=== PATIENT | female | born 1945 | race Caucasian/White ===

== ENCOUNTER 2016-10-13 10:39 | Inpatient (IN) | payer OTHER ==
[~2016-10-13] VITALS: Ht 152.4 cm; Wt 110.0 kg
[~2016-10-13 10:39] MED LIST: ADVAIR 250/501 DISK IH; ALENDRONATE SOD70 MG PO; ALTACE10 MG PO; AMOX TR-K CLV1 EAC4 PO; ATARAX,VISTARIL25 MG PO; ATIVAN1 MG PO; AUGMENTIN875 MG PO; Altace PO; BEANO1 TABLET PO; BENICAR40 MG PO; CALCIUM + D TA1 EACH PO; CALCIUM 500 +1 EAC4 PO; CALCIUM 600 +1 EAC4 PO; CALCIUM 600 +1 EAC9 PO; CARDIZEM CD,CA300 MG PO; CARDIZEM CD240 MG PO; CARDIZEM CD300 MG PO; CATAPRES0.1 MG PO; CEFTIN500 MG PO; CLONIDINE HCL0.1 MG PO; CLONIDINE HCL0.2 MG PO; COMBIVENT200 INHALA IH; CONSTULOSE10 GM/15 M PO; CYANOCOBAL1000 MCG/2 IM; Cardizem CD,Cartia X PO; Catapres PO; Cozaar PO; DAILY VITAMIN1 EAC8 PO; DIFLUCAN150 MG PO; DILTIAZEM 24HR240 MG PO; DUONEB 2.5-0.5 M3 ML IH; ELIQUIS5 MG PO; ENDOCET 10-3251 EACH PO; FEOSOL325 MG PO; FERROUS SULFAT324 M1 PO; FLONASE16 G1 BOTH NARES; FLOVENT DISKUS1 DIS2 IH; FLUTICASONE PRO16 GM BOTH NARES; FOSAMAX70 MG PO; FUROSEMIDE20 MG PO; FUROSEMIDE40 MG PO; GABAPENTIN100 MG; GABAPENTIN100 MG PO; GLUCOPHAGE500 MG PO; HYDROCODON-ACE1 EAC7; HYDROCODON-ACE1 EAC7 PO; HYDROCODON-ACE1 EAC9 PO; HYDROXYZINE PAM25 MG PO; IBUPROFEN800 MG PO; IPRATR-ALBUTEROL3 ML IH; K-DUR20 MEQ PO; KENALOG,ARISTOC80 G1 TP; KETOCONAZOLE60 GM TP; KLOR-CON M2020 MEQ PO; LANTUS 10100 UNITS/ SC; LANTUS 3 M100 UNITS1 SC; LANTUS 3 M100 UNITS1 SQ; LASIX40 MG PO; LEVAQUIN500 MG PO; LEVOTHROID,S0.075 MG PO; LEVOTHYROXINE200 MC1; LEVOTHYROXINE300 MCG PO; LEVOTHYROXINE50 MCG; LIDOCAINE700 MG TD; Levothroid,Synthroid PO; MAG-AL PLUS SUS30 ML PO; METROGEL60 GM TP; MOTRIN800 MG PO; MULTIVITAMIN1 EAC2 PO; NEURONTIN100 MG PO; NEURONTIN400 MG PO; NORCO 5/3251 TABLET PO; NOVOLOG PE100 UNITS/ SC; NYSTATIN-TRIAMC15 GM TP; Neurontin PO; OMEPRAZOLE20 MG PO; OMNICEF300 MG PO; ONE DAILY WOME1 EACH PO; PREDNISONE10 MG PO; PREDNISONE20 MG PO; PREDNISONE5 MG PO; PRILOSEC20 MG PO; PROAIR HFA8.5 GM IH; PROBIOTIC 10 PO; PROBIOTIC1 EAC1 PO; PROBIOTIC1 EAC2 PO; PROVENTIL,2.5 MG/0.5 IH; PROVENTIL,2.5 MG/3 M IH; RAMIPRIL10 MG PO; REQUIP1 MG PO; REQUIP2 MG PO; ROBITUSSIN DM118 ML PO; ROPINIROLE HCL2 MG; ROPINIROLE HCL2 MG PO; Requip PO; SANTYL30 GM TP; SENNA S TABLET1 EACH PO; SENNA-C8.6 MG PO; SENNA-DOCUSATE1 EAC1 PO; SENOKOT S,PE1 TABLET PO; SPIRIVA1 INHALATI IH; SYNTHROID200 MCG PO; SYNTHROID300 MCG PO; SYNTHROID50 MCG PO; Senokot,Sennagen PO; TAZTIA XT300 M1 PO; TETRACYCLINE H250 MG PO; TRILISATE PO; TYLENOL ARTHRI650 MG PO; TYLENOL EXTRA500 MG PO; TYLENOL PM1 CAPLET PO; TYLENOL REGULA325 MG PO; VENTOLIN HFA18 GM IH; VISTARIL25 MG PO; WOMEN'S DAILY1 EAC1 PO; XANAX0.25 MG PO; ZANAFLEX4 MG PO
[2016-10-13 11:02] LABS: POINT-OF-CARE METER ID UU13113747
[2016-10-13 12:03] LABS: HEMATOCRIT 41.6 % (36.0-46.0); MCH 25.4 PG (29.0-34.0); MCHC 31.3 G/DL (30.0-36.0); MEAN PLAT.VOLUME 8.8 uM^3 (9.5-12.4); PLATELET COUNT 349 K/uL (156-360); RBC DIS.WIDTH-CV 18.9 % (11.8-14.6); RBC DIS.WIDTH-SD 55.8 % (39-53)
[2016-10-13 12:17] LABS: MCV 81.4 FL (83-99); RED BLOOD COUNT 5.11 M/uL (3.80-5.20); WHITE BLOOD COUNT 11.3 K/uL (4.1-10.2)
[2016-10-13 12:21] LABS: CHLORIDE 105 mEq/L (99-109); POTASSIUM 5.9 mEq/L (3.7-5.4); SODIUM 138 mEq/L (136-147)
[2016-10-13 12:22] LABS: GLUCOSE 86 mg/dL (70-99)
[2016-10-13 12:24] LABS: ANION GAP 11 MEQ/L (2-14)
[2016-10-13 12:26] LABS: GFR ESTIMATE (CALCULATED) 37 mL/min/
[2016-10-13 12:26] LABS: ADD MIUA? YES; BILIRUBIN NEGATIVE; BLOOD TRACE; COLOR YELLOW ((YELLOW)); GLUCOSE (STRIP) NEGATIVE; KETONES NEGATIVE; LEUKOCYTES TRACE; NITRITE NEGATIVE; PROTEIN (STRIP) NEGATIVE; SPECIFIC GRAVITY 1.022 (1.000-1.030); UROBILINOGEN 0.2 MG/DL (0.2-1.0)
[2016-10-13 12:27] LABS: UREA NITROGEN (BUN) 51 mg/dL (9-23)
[2016-10-13 12:30] LABS: TROP-I INTERPRETATION NEGATIVE; TROPONIN-I < 0.01 ng/mL (0.0-0.30)
[2016-10-13 12:49] LABS: EPITHELIAL CELLS 1+; MUCUS NONE SEEN; RED BLOOD CELLS RARE /HPF (0-5); WHITE BLOOD CELLS RARE /HPF (0-5)
[2016-10-13 12:50] LABS: BACTERIA 1+; CASTS PRESENT /LPF; CRYSTALS NONE SEEN; HYALINE CASTS 25-30 /LPF; UCUL ADDED? NO
[2016-10-13 17:31] LABS: POINT-OF-CARE METER ID UU13113747
[2016-10-13 18:57] VITALS: BP 141/89
[2016-10-13 19:11] VITALS: BP 141/89
[2016-10-13 21:58] LABS: POINT-OF-CARE METER ID UU13113717
[2016-10-14 01:31] VITALS: BP 142/64
[2016-10-14 01:46] LABS: CHLORIDE 108 mEq/L (99-109); POTASSIUM 5.6 mEq/L (3.7-5.4); SODIUM 140 mEq/L (136-147)
[2016-10-14 01:48] LABS: GLUCOSE 170 mg/dL (70-99)
[2016-10-14 01:49] LABS: ANION GAP 9 MEQ/L (2-14)
[2016-10-14 01:51] LABS: GFR ESTIMATE (CALCULATED) 34 mL/min/
[2016-10-14 01:52] LABS: UREA NITROGEN (BUN) 38 mg/dL (9-23)
[2016-10-14 03:42] VITALS: BP 141/63
[2016-10-14 06:25] LABS: HEMATOCRIT 30.4 % (36.0-46.0); MCH 24.6 PG (29.0-34.0); MCHC 29.6 G/DL (30.0-36.0); MCV 83.1 FL (83-99); MEAN PLAT.VOLUME 9.2 uM^3 (9.5-12.4); PLATELET COUNT 399 K/uL (156-360); RBC DIS.WIDTH-CV 18.4 % (11.8-14.6); RBC DIS.WIDTH-SD 56.5 % (39-53)
[2016-10-14 06:33] LABS: ANION GAP 7 MEQ/L (2-14); CHLORIDE 106 MEQ/L (99-109); GFR ESTIMATE (CALCULATED) 37 mL/min/; GLUCOSE 156 mg/dL (70-99); POTASSIUM 5.2 MEQ/L (3.7-5.4); SAMPLE HEMOLYSIS CHECK 0; SAMPLE ICTERIC CHECK 0; SAMPLE LIPEMIA CHECK 0; SODIUM 139 MEQ/L (136-147); UREA NITROGEN (BUN) 34 mg/dL (9-23)
[2016-10-14 06:35] LABS: RED BLOOD COUNT 3.66 M/uL (3.80-5.20); WHITE BLOOD COUNT 17.3 K/uL (4.1-10.2)
[2016-10-14 06:57] LABS: POINT-OF-CARE METER ID UU13113717
[2016-10-14 07:28] VITALS: BP 138/68
[2016-10-14 09:56] LABS: POINT-OF-CARE METER ID UU14149397
[2016-10-14 11:37] LABS: POINT-OF-CARE METER ID UU14149397
[2016-10-14 15:39] VITALS: BP 124/75
[2016-10-14 17:11] LABS: POINT-OF-CARE METER ID UU14149397
[2016-10-14 20:02] VITALS: BP 132/60
[2016-10-14 23:44] VITALS: BP 132/60
[2016-10-15] VITALS (16 sets, daily range): BP systolic 125–162; BP diastolic 58–87
[2016-10-15 05:19] LABS: INTER. NORMALIZED RATIO 1.1; PROTHROMBIN TIME 10.7 (9.2-11.2); PTT 30.3 (25-32)
[2016-10-15 05:23] LABS: CHLORIDE 107 mEq/L (99-109); POTASSIUM 5.3 mEq/L (3.7-5.4); SODIUM 139 mEq/L (136-147)
[2016-10-15 05:24] LABS: GLUCOSE 190 mg/dL (70-99)
[2016-10-15 05:26] LABS: ANION GAP 8 MEQ/L (2-14)
[2016-10-15 05:28] LABS: GFR ESTIMATE (CALCULATED) 47 mL/min/
[2016-10-15 05:29] LABS: UREA NITROGEN (BUN) 30 mg/dL (9-23)
[2016-10-15 05:32] LABS: HEMATOCRIT 28.2 % (36.0-46.0); MCHC 31.2 G/DL (30.0-36.0); MCV 83.2 FL (83-99); MEAN PLAT.VOLUME 9.2 uM^3 (9.5-12.4); PLATELET COUNT 348 K/uL (156-360); RBC DIS.WIDTH-CV 17.7 % (11.8-14.6); RBC DIS.WIDTH-SD 52.2 % (39-53); RED BLOOD COUNT 3.39 M/uL (3.80-5.20); WHITE BLOOD COUNT 15.9 K/uL (4.1-10.2)
[2016-10-15 05:50] LABS: EOSINOPHIL (%) 0 % (0-5); IMMATURE GRANULOCYTE (%) 1.1 % (0.0-0.7); IMMATURE GRANULOCYTE COUNT 1.8 K/uL; LYMPHOCYTE COUNT 0.5 K/uL (1.0-2.8); MONOCYTE (%) 4.4 % (3-12); MONOCYTE COUNT 0.7 K/uL (0-0.8); NEUTROPHIL (%) 91.4 % (45-76); NEUTROPHIL COUNT 14.6 K/uL (1.8-6.4)
[2016-10-15 06:19] LABS: POINT-OF-CARE METER ID UU14149397
[2016-10-15 11:47] LABS: POINT-OF-CARE METER ID UU13113717
[2016-10-15 16:55] LABS: POINT-OF-CARE METER ID UU13113717
[2016-10-16 00:18] VITALS: BP 137/65
[2016-10-16 04:00] VITALS: BP 120/58
[2016-10-16 05:30] LABS: HEMATOCRIT 27.5 % (36.0-46.0); MCH 26.6 PG (29.0-34.0); MCHC 31.6 G/DL (30.0-36.0); MCV 84.1 FL (83-99); MEAN PLAT.VOLUME 9.2 uM^3 (9.5-12.4); PLATELET COUNT 336 K/uL (156-360); RBC DIS.WIDTH-CV 17.2 % (11.8-14.6); RED BLOOD COUNT 3.27 M/uL (3.80-5.20); WHITE BLOOD COUNT 19.5 K/uL (4.1-10.2)
[2016-10-16 06:11] LABS: ANION GAP 7 MEQ/L (2-14); CHLORIDE 104 MEQ/L (99-109); GFR ESTIMATE (CALCULATED) 40 mL/min/; GLUCOSE 159 mg/dL (70-99); POTASSIUM 5.3 MEQ/L (3.7-5.4); SAMPLE HEMOLYSIS CHECK 0; SAMPLE ICTERIC CHECK 0; SAMPLE LIPEMIA CHECK 0; SODIUM 141 MEQ/L (136-147); UREA NITROGEN (BUN) 31 mg/dL (9-23)
[2016-10-16 06:55] LABS: POINT-OF-CARE METER ID UU13113717
[2016-10-16 08:21] VITALS: BP 145/63
[2016-10-16 11:52] LABS: POINT-OF-CARE METER ID UU13113717
[2016-10-16 16:54] LABS: POINT-OF-CARE METER ID UU13113717
[2016-10-16 17:10] VITALS: BP 177/85
[2016-10-16 19:40] VITALS: BP 130/80
[2016-10-16 23:25] VITALS: BP 131/64
[2016-10-17 03:00] VITALS: BP 110/65
[2016-10-17 05:39] LABS: HEMATOCRIT 27.5 % (36.0-46.0); MCH 26.7 PG (29.0-34.0); MCHC 31.3 G/DL (30.0-36.0); MCV 85.4 FL (83-99); MEAN PLAT.VOLUME 9.2 uM^3 (9.5-12.4); PLATELET COUNT 353 K/uL (156-360); RBC DIS.WIDTH-CV 17.4 % (11.8-14.6); RBC DIS.WIDTH-SD 54.8 % (39-53); RED BLOOD COUNT 3.22 M/uL (3.80-5.20); WHITE BLOOD COUNT 14.5 K/uL (4.1-10.2)
[2016-10-17 06:04] LABS: ANION GAP 9 MEQ/L (2-14); CHLORIDE 101 MEQ/L (99-109); GFR ESTIMATE (CALCULATED) 43 mL/min/; GLUCOSE 159 mg/dL (70-99); POTASSIUM 4.8 MEQ/L (3.7-5.4); SAMPLE HEMOLYSIS CHECK 0; SAMPLE ICTERIC CHECK 0; SAMPLE LIPEMIA CHECK 0; SODIUM 138 MEQ/L (136-147); UREA NITROGEN (BUN) 33 mg/dL (9-23)
[2016-10-17 07:31] LABS: POINT-OF-CARE METER ID UU13113717
[2016-10-17 07:59] VITALS: BP 148/66
[2016-10-17 11:36] LABS: POINT-OF-CARE METER ID UU14149397
[2016-10-17 16:10] VITALS: BP 142/64
[2016-10-17 16:36] LABS: POINT-OF-CARE METER ID UU14149397
[2016-10-17 20:23] VITALS: BP 120/64
[2016-10-17 22:22] LABS: POINT-OF-CARE METER ID UU13113717
[2016-10-17 23:53] VITALS: BP 120/60
[2016-10-18] VITALS (12 sets, daily range): BP systolic 120–176; BP diastolic 58–77
[2016-10-18 06:01] LABS: ANION GAP 6 MEQ/L (2-14); CHLORIDE 104 MEQ/L (99-109); GFR ESTIMATE (CALCULATED) 37 mL/min/; GLUCOSE 137 mg/dL (70-99); SAMPLE HEMOLYSIS CHECK 0; SAMPLE ICTERIC CHECK 0; SAMPLE LIPEMIA CHECK 0; SODIUM 140 MEQ/L (136-147); UREA NITROGEN (BUN) 33 mg/dL (9-23)
[2016-10-18 07:04] LABS: HEMATOCRIT 21.5 % (36.0-46.0); MCH 26.5 PG (29.0-34.0); MCHC 30.7 G/DL (30.0-36.0); MCV 86.3 FL (83-99); PLATELET COUNT 310 K/uL (156-360); RBC DIS.WIDTH-CV 17.3 % (11.8-14.6); RBC DIS.WIDTH-SD 52.5 % (39-53); WHITE BLOOD COUNT 14.1 K/uL (4.1-10.2)
[2016-10-18 07:05] LABS: RED BLOOD COUNT 2.49 M/uL (3.80-5.20)
[2016-10-18 14:26] LABS: INTERNAL CONTROL VALID? YES
[2016-10-18 20:32] LABS: HEMATOCRIT 25.7 % (36.0-46.0); MCV 85.7 FL (83-99)
[2016-10-19 04:01] VITALS: BP 138/65
[2016-10-19 06:12] LABS: HEMATOCRIT 23.7 % (36.0-46.0); MCH 27.7 PG (29.0-34.0); MCHC 32.1 G/DL (30.0-36.0); MCV 86.5 FL (83-99); MEAN PLAT.VOLUME 9.4 uM^3 (9.5-12.4); PLATELET COUNT 243 K/uL (156-360); RBC DIS.WIDTH-CV 17.4 % (11.8-14.6); RBC DIS.WIDTH-SD 54.6 % (39-53); RED BLOOD COUNT 2.74 M/uL (3.80-5.20); WHITE BLOOD COUNT 13.6 K/uL (4.1-10.2)
[2016-10-19 06:39] LABS: ANION GAP 5 MEQ/L (2-14); CHLORIDE 101 MEQ/L (99-109); GFR ESTIMATE (CALCULATED) 52 mL/min/; GLUCOSE 147 mg/dL (70-99); POTASSIUM 5.3 MEQ/L (3.7-5.4); SAMPLE HEMOLYSIS CHECK 0; SAMPLE ICTERIC CHECK 0; SAMPLE LIPEMIA CHECK 0; SODIUM 141 MEQ/L (136-147); UREA NITROGEN (BUN) 36 mg/dL (9-23)
[2016-10-19 09:12] VITALS: BP 154/52
[2016-10-19 12:10] VITALS: BP 152/78
[2016-10-19 16:44] VITALS: BP 173/61
[2016-10-19 20:00] VITALS: BP 187/74
[2016-10-19 20:15] VITALS: BP 150/70
[2016-10-20] VITALS (9 sets, daily range): BP systolic 148–189; BP diastolic 63–90
[2016-10-20 04:34] LABS: HEMATOCRIT 25.7 % (36.0-46.0); MCH 26.8 PG (29.0-34.0); MCHC 30.4 G/DL (30.0-36.0); MCV 88.3 FL (83-99); MEAN PLAT.VOLUME 9.1 uM^3 (9.5-12.4); PLATELET COUNT 314 K/uL (156-360); RBC DIS.WIDTH-CV 17.1 % (11.8-14.6); RED BLOOD COUNT 2.91 M/uL (3.80-5.20)
[2016-10-20 04:41] LABS: CHLORIDE 99 mEq/L (99-109); POTASSIUM 5.2 mEq/L (3.7-5.4); SODIUM 140 mEq/L (136-147)
[2016-10-20 04:42] LABS: GLUCOSE 127 mg/dL (70-99)
[2016-10-20 04:44] LABS: ANION GAP 6 MEQ/L (2-14)
[2016-10-20 04:46] LABS: GFR ESTIMATE (CALCULATED) 47 mL/min/
[2016-10-20 04:47] LABS: UREA NITROGEN (BUN) 37 mg/dL (9-23)
[2016-10-20] MEDS ORDERED: SENNA S TABLET1 EACH PO ×2 (15:10→15:11)
[2016-10-20] MEDS ORDERED: PROBIOTIC1 EAC1 PO (15:11)
[2016-10-20] MEDS ORDERED: WOMEN'S DAILY1 EAC2 PO (15:12)
[2016-10-20] MEDS ORDERED: CALCIUM 500 +1 EAC5 PO (15:12)
[2016-10-20] MEDS ORDERED: HYDROXYZINE HCL25 MG PO ×2 (15:13)
[2016-10-20] MEDS ORDERED: LEVO-T300 MCG PO ×2 (15:16)
[2016-10-20] MEDS ORDERED: FLONASE16 G1 BOTH NARES (15:17)
[2016-10-20] MEDS ORDERED: ROPINIROLE HCL2 MG PO (15:18)
[2016-10-20] MEDS ORDERED: ALPRAZOLAM0.25 M2 PO (15:18)
[2016-10-20] MEDS ORDERED: GABAPENTIN400 MG PO (15:19)
[2016-10-20] MEDS ORDERED: SPIRIVA1 INHALATI AEROSOL (15:21)
[2016-10-20] MEDS ORDERED: ADVAIR 250/501 DISK PO (15:23)
[2016-10-20] MEDS ORDERED: FERROUS SULFAT325 MG PO ×2 (15:24)
[2016-10-20] MEDS ORDERED: PROAIR HFA8.5 GM PO (15:24)
[2016-10-20] MEDS ORDERED: POTASSIUM CHLO20 ME2 PO (15:25)
[2016-10-20] MEDS ORDERED: CARDIZEM CD,CA240 MG PO (15:26)
[2016-10-20] MEDS ORDERED: RAMIPRIL10 MG PO (15:26)
[2016-10-20] MEDS ORDERED: ELIQUIS5 MG PO (15:27)
[2016-10-20] MEDS ORDERED: LANTUS 3 M100 UNITS1 SC (15:27)
[2016-10-20] MEDS ORDERED: CLONIDINE HCL0.1 MG PO (15:27)
[2016-10-20] MEDS ORDERED: FUROSEMIDE40 MG PO (15:28)
[2016-10-20] MEDS ORDERED: PROVENTIL,2.5 MG/3 M AEROSOL (15:28)
[2016-10-20 21:29] LABS: POINT-OF-CARE METER ID UU14149397
[2016-10-21] VITALS (7 sets, daily range): BP systolic 134–167; BP diastolic 63–89
[2016-10-21 06:43] LABS: POINT-OF-CARE METER ID UU13113717
[2016-10-21 06:52] LABS: HEMATOCRIT 30.6 % (36.0-46.0); MCV 88.7 FL (83-99)
[2016-10-21 11:54] LABS: POINT-OF-CARE METER ID UU14149397
[2016-10-21] MEDS ORDERED: DOXYCYCLINE HY100 M3 PO (14:22)
[2016-10-21] MEDS ORDERED: FUROSEMIDE40 MG PO (14:24)
[2016-10-21] MEDS ORDERED: PROTONIX40 MG PO (14:26)
[2016-10-21] MEDS ORDERED: PREDNISONE20 MG PO (14:28)
[2016-10-21 16:43] LABS: POINT-OF-CARE METER ID UU14149397
[2016-10-21 21:02] LABS: POINT-OF-CARE METER ID UU14149397
== END 2016-10-21 21:30 | disposition short-term general hospital (02) | DRG 166 ==
LOC: EME 10:39 → EDOF 14:44 → 3EAST 14:44
PROVIDERS: Emergency Medicine; Hospitalist; Internal Medicine; Orthopaedic Surgery; Orthopaedic Surgery Hand Surgery; Physician Assistant; Physician Assistant Medical
PROC: 0HD7XZZ Extraction of Abdomen Skin, External Approach (ICD-10-PCS; principal; 2016-10-14)
PROC: 0HBNXZZ Excision of Left Foot Skin, External Approach (ICD-10-PCS; principal; 2016-10-14)
PROC: 0SSB04Z Reposition Left Hip Joint with Internal Fixation Device, Open Approach (ICD-10-PCS; 2016-10-15)
PROC: 30230N1 Transfusion of Nonautologous Red Blood Cells into Peripheral Vein, Open Approach (ICD-10-PCS; 2016-10-18)
PROC: 0HCNXZZ Extirpation of Matter from Left Foot Skin, External Approach (ICD-10-PCS; 2016-10-18)
PROC: 0HCMXZZ Extirpation of Matter from Right Foot Skin, External Approach (ICD-10-PCS; 2016-10-18)
PROC: 0HCNXZZ Extirpation of Matter from Left Foot Skin, External Approach (ICD-10-PCS; 2016-10-21)
DX: J44.0 Chronic obstructive pulmonary disease with (acute) lower respiratory infection (principal); S72.142A Displaced intertrochanteric fracture of left femur, initial encounter for closed fracture; J18.9 Pneumonia, unspecified organism; J44.1 Chronic obstructive pulmonary disease with (acute) exacerbation; J96.21 Acute and chronic respiratory failure with hypoxia; N17.9 Acute kidney failure, unspecified; T84.125A Displacement of internal fixation device of left femur, initial encounter; Y83.1 Surgical operation with implant of artificial internal device as the cause of abnormal reaction of the patient, or of later complication, without mention of misadventure at the time of the procedure; Y92.230 Patient room in hospital as the place of occurrence of the external cause; N18.3 Chronic kidney disease, stage 3 (moderate); L89.613 Pressure ulcer of right heel, stage 3; E87.5 Hyperkalemia; I50.32 Chronic diastolic (congestive) heart failure; E03.8 Other specified hypothyroidism; E66.01 Morbid (severe) obesity due to excess calories; W18.39XA Other fall on same level, initial encounter; Y92.009 Unspecified place in unspecified non-institutional (private) residence as the place of occurrence of the external cause; E86.0 Dehydration; Z96.651 Presence of right artificial knee joint; G47.33 Obstructive sleep apnea (adult) (pediatric); Z87.891 Personal history of nicotine dependence; Z99.81 Dependence on supplemental oxygen; R33.0 Drug induced retention of urine; T40.2X5A Adverse effect of other opioids, initial encounter; J98.11 Atelectasis; L03.116 Cellulitis of left lower limb; D50.9 Iron deficiency anemia, unspecified; F41.9 Anxiety disorder, unspecified; I13.0 Hypertensive heart and chronic kidney disease with heart failure and stage 1 through stage 4 chronic kidney disease, or unspecified chronic kidney disease; E11.40 Type 2 diabetes mellitus with diabetic neuropathy, unspecified; E11.22 Type 2 diabetes mellitus with diabetic chronic kidney disease; M14.60 Charcot's joint, unspecified site; E11.621 Type 2 diabetes mellitus with foot ulcer; L97.422 Non-pressure chronic ulcer of left heel and midfoot with fat layer exposed; L89.220 Pressure ulcer of left hip, unstageable; L89.213 Pressure ulcer of right hip, stage 3; L89.310 Pressure ulcer of right buttock, unstageable; L89.150 Pressure ulcer of sacral region, unstageable; L30.4 Erythema intertrigo; I27.2 Other secondary pulmonary hypertension; I08.3 Combined rheumatic disorders of mitral, aortic and tricuspid valves; Z68.42 Body mass index [BMI] 45.0-49.9, adult
CPT/HCPCS: 71010; 73502; 73560; 74000; 76000; 76937; 80048; 80048 91; 81003; 82272; 82306; 82948; 84484; 85014; 85018; 85025; 85027; 85610; 85730; 86850; 86900; 86901; 86920; 87040; 87070; 87075; 87076; 87077; 87147; 87186; 87205; 93005; 93971; 94010; 94640; 94640 76; 94760; 94799; 97530 GP; 99202; 99281; 99285; C1713; C1894; C9113; J0690; J0696; J1100; J1170; J1650; J1815; J1940; J2270; J2405; J2920; J3010; J7030; J7042; J7050; J7120; J7512; P9016; Q0177

== ENCOUNTER 2016-12-31 12:49 | Inpatient (IN) | payer OTHER ==
[2016-12-31] VITALS (8 sets, daily range): BP systolic 90–131; BP diastolic 59–87
[~2016-12-31] VITALS: Ht 152.4 cm; Wt 88.5 kg
[~2016-12-31 12:49] MED LIST changes: +ADVAIR 250/501 DISK PO; +ALPRAZOLAM0.25 M2 PO; +CALCIUM 500 +1 EAC5 PO; +CARDIZEM CD,CA240 MG PO; +DOXYCYCLINE HY100 M3 PO; +FERROUS SULFAT325 MG PO; +GABAPENTIN400 MG PO; +HYDROXYZINE HCL25 MG PO; +LEVO-T300 MCG PO; +POTASSIUM CHLO20 ME2 PO; +PROAIR HFA8.5 GM PO; +PROTONIX40 MG PO; +PROVENTIL,2.5 MG/3 M AEROSOL; +SPIRIVA1 INHALATI AEROSOL; +WOMEN'S DAILY1 EAC2 PO
[2016-12-31 13:20] LABS: INTER. NORMALIZED RATIO 1.2; PROTHROMBIN TIME 12.1 (9.2-11.2)
[2016-12-31 13:23] LABS: CHLORIDE 103 mEq/L (99-109); POTASSIUM 4.1 mEq/L (3.7-5.4); SODIUM 139 mEq/L (136-147)
[2016-12-31 13:25] LABS: GLUCOSE 104 mg/dL (70-99); HEMATOCRIT 22.3 % (36.0-46.0); MCH 27.5 PG (29.0-34.0); MCHC 28.3 G/DL (30.0-36.0); MCV 97.4 FL (83-99); MEAN PLAT.VOLUME 8.6 uM^3 (9.5-12.4); NRBC (%) 0.4 /100 WBC (0-0); PLATELET COUNT 704 K/uL (156-360); RBC DIS.WIDTH-CV 22.3 % (11.8-14.6); RBC DIS.WIDTH-SD 78.3 % (39-53); RED BLOOD COUNT 2.29 M/uL (3.80-5.20); WHITE BLOOD COUNT 13.5 K/uL (4.1-10.2)
[2016-12-31 13:27] LABS: ANION GAP 6 MEQ/L (2-14)
[2016-12-31 13:29] LABS: GFR ESTIMATE (CALCULATED) > 59 mL/min/
[2016-12-31 13:30] LABS: UREA NITROGEN (BUN) 9 mg/dL (9-23)
[2016-12-31] MEDS ORDERED: BREO ELLIPTA I1 EACH IH (14:08)
[2016-12-31] MEDS ORDERED: CARDIZEM CD,CA120 MG PO (14:10)
[2016-12-31] MEDS ORDERED: DIAZEPAM5 MG PO (14:11)
[2016-12-31] MEDS ORDERED: KLOR-CON 1010 ME1 PO (14:12)
[2016-12-31 14:14] LABS: ABSOLUTE RETICULOCYTE CT. 0.2 M/uL (0.02-0.08); IMM.RETIC FRACTION 31.4 % (3-19); RETIC HGB EQUIVALENT 29.8 (28-36); RETICULOCYTE COUNT 10.8 % (0.5-1.8)
[2016-12-31] MEDS ORDERED: LEVO-T200 MCG PO (14:18)
[2016-12-31] MEDS ORDERED: MIRALAX17 GM PO (14:19)
[2016-12-31] MEDS ORDERED: OXYCONTIN10 MG PO (14:21)
[2016-12-31] MEDS ORDERED: PROTONIX40 MG PO (14:21)
[2016-12-31] MEDS ORDERED: ASCORBIC ACID250 MG PO (14:24)
[2016-12-31] MEDS ORDERED: ELIQUIS5 MG PO (14:25)
[2016-12-31] MEDS ORDERED: REQUIP0.25 MG PO (14:33)
[2016-12-31] MEDS ORDERED: SENNA8.6 MG PO (14:36)
[2016-12-31] MEDS ORDERED: SENNA-S TABLET1 EACH PO (14:36)
[2016-12-31] MEDS ORDERED: NEURONTIN100 MG PO (14:38)
[2016-12-31] MEDS ORDERED: MILK OF MAGN PO (14:39)
[2016-12-31] MEDS ORDERED: FLEET ENEMA-AD118 ML PR (14:40)
[2016-12-31] MEDS ORDERED: PAIN & FEVER325 MG PO (14:42)
[2016-12-31] MEDS ORDERED: GLUCOSE GEL15 GM PO (14:43)
[2016-12-31] MEDS ORDERED: DUONEB 2.5-0.5 M3 ML AEROSOL (14:43)
[2016-12-31] MEDS ORDERED: OXAYDO5 MG PO (14:45)
[2016-12-31 21:19] LABS: POINT-OF-CARE METER ID UU14174225
[2017-01-01] VITALS (7 sets, daily range): BP systolic 122–175; BP diastolic 59–85
[2017-01-01 02:01] LABS: MCH 28.5 PG (29.0-34.0); MCHC 29.7 G/DL (30.0-36.0); MEAN PLAT.VOLUME 8.7 uM^3 (9.5-12.4); NRBC (%) 0.3 /100 WBC (0-0); PLATELET COUNT 587 K/uL (156-360); RBC DIS.WIDTH-CV 19.6 % (11.8-14.6); RBC DIS.WIDTH-SD 66.6 % (39-53); RED BLOOD COUNT 3.02 M/uL (3.80-5.20); WHITE BLOOD COUNT 13.8 K/uL (4.1-10.2)
[2017-01-01 07:36] LABS: HEMATOCRIT 28.1 % (36.0-46.0); MCH 28.4 PG (29.0-34.0); MCHC 29.2 G/DL (30.0-36.0); MCV 97.2 FL (83-99); MEAN PLAT.VOLUME 8.4 uM^3 (9.5-12.4); NRBC (%) 0.3 /100 WBC (0-0); PLATELET COUNT 519 K/uL (156-360); RBC DIS.WIDTH-SD 70.4 % (39-53); RED BLOOD COUNT 2.89 M/uL (3.80-5.20)
[2017-01-01 07:55] LABS: POINT-OF-CARE METER ID UU14174225
[2017-01-01 07:57] LABS: ALKALINE PHOSPHATASE 175 IU/L (3-129); ANION GAP 5 MEQ/L (2-14); CHLORIDE 102 MEQ/L (99-109); GFR ESTIMATE (CALCULATED) > 59 mL/min/; GLUCOSE 87 mg/dL (70-99); POTASSIUM 4.1 MEQ/L (3.7-5.4); SAMPLE HEMOLYSIS CHECK 0; SAMPLE ICTERIC CHECK 0; SAMPLE LIPEMIA CHECK 0; SODIUM 139 MEQ/L (136-147); TOTAL BILIRUBIN 0.6 MG/DL (0.0-1.0); UREA NITROGEN (BUN) 9 mg/dL (9-23)
[2017-01-01 10:47] LABS: HEMATOCRIT 30.3 % (36.0-46.0); MCH 28.4 PG (29.0-34.0); MCHC 29.4 G/DL (30.0-36.0); MCV 96.8 FL (83-99); MEAN PLAT.VOLUME 8.7 uM^3 (9.5-12.4); NRBC (%) 0.2 /100 WBC (0-0); PLATELET COUNT 588 K/uL (156-360); RBC DIS.WIDTH-SD 70.2 % (39-53); RED BLOOD COUNT 3.13 M/uL (3.80-5.20); WHITE BLOOD COUNT 12.6 K/uL (4.1-10.2)
[2017-01-01 16:46] LABS: MCH 28.1 PG (29.0-34.0); MCV 96.8 FL (83-99); MEAN PLAT.VOLUME 8.5 uM^3 (9.5-12.4); NRBC (%) 0.2 /100 WBC (0-0); PLATELET COUNT 567 K/uL (156-360); RBC DIS.WIDTH-SD 69.6 % (39-53)
[2017-01-01 19:02] LABS: WHITE BLOOD COUNT 16.9 K/uL (4.1-10.2)
[2017-01-01 21:52] LABS: HEMATOCRIT 30.7 % (36.0-46.0); MCH 28.5 PG (29.0-34.0); MCHC 29.6 G/DL (30.0-36.0); MCV 96.2 FL (83-99); MEAN PLAT.VOLUME 8.7 uM^3 (9.5-12.4); NRBC (%) 0.2 /100 WBC (0-0); PLATELET COUNT 584 K/uL (156-360); RBC DIS.WIDTH-CV 20.1 % (11.8-14.6); RED BLOOD COUNT 3.19 M/uL (3.80-5.20); WHITE BLOOD COUNT 19.2 K/uL (4.1-10.2)
[2017-01-02 04:00] VITALS: BP 137/67
[2017-01-02 07:17] LABS: EOSINOPHIL (%) 2.3 % (0-5); EOSINOPHIL COUNT 0.4 K/uL (0-0.3); HEMATOCRIT 27.8 % (36.0-46.0); IMMATURE GRANULOCYTE (%) 0.7 % (0.0-0.7); IMMATURE GRANULOCYTE COUNT 0.1 K/uL; INSTRUMENT ABS NEUTROPHIL CT 12.6 K/uL; LYMPHOCYTE COUNT 0.9 K/uL (1.0-2.8); MCH 28.1 PG (29.0-34.0); MCHC 28.8 G/DL (30.0-36.0); MCV 97.5 FL (83-99); MEAN PLAT.VOLUME 8.7 uM^3 (9.5-12.4); MONOCYTE (%) 7.9 % (3-12); MONOCYTE COUNT 1.2 K/uL (0-0.8); NEUTROPHIL (%) 83.1 % (45-76); NEUTROPHIL COUNT 12.6 K/uL (1.8-6.4); NRBC (%) 0.1 /100 WBC (0-0); PLATELET COUNT 518 K/uL (156-360); RBC DIS.WIDTH-SD 70.1 % (39-53); RED BLOOD COUNT 2.85 M/uL (3.80-5.20); WHITE BLOOD COUNT 15.2 K/uL (4.1-10.2)
[2017-01-02 07:38] LABS: ANION GAP 4 MEQ/L (2-14); CHLORIDE 103 MEQ/L (99-109); GFR ESTIMATE (CALCULATED) > 59 mL/min/; GLUCOSE 77 mg/dL (70-99); SAMPLE HEMOLYSIS CHECK 0; SAMPLE ICTERIC CHECK 0; SAMPLE LIPEMIA CHECK 0; SODIUM 140 MEQ/L (136-147); UREA NITROGEN (BUN) 9 mg/dL (9-23)
[2017-01-02 07:40] VITALS: BP 133/60
[2017-01-02 08:17] LABS: POINT-OF-CARE METER ID UU14188625
[2017-01-02 11:41] VITALS: BP 122/60
[2017-01-02 12:23] LABS: HEMATOCRIT 26.7 % (36.0-46.0); MCH 28.7 PG (29.0-34.0); MCHC 29.6 G/DL (30.0-36.0); MCV 97.1 FL (83-99); MEAN PLAT.VOLUME 8.4 uM^3 (9.5-12.4); PLATELET COUNT 489 K/uL (156-360); RBC DIS.WIDTH-CV 19.9 % (11.8-14.6); RBC DIS.WIDTH-SD 69.9 % (39-53); RED BLOOD COUNT 2.75 M/uL (3.80-5.20); WHITE BLOOD COUNT 14.8 K/uL (4.1-10.2)
[2017-01-02 15:01] VITALS: BP 123/59
[2017-01-02 17:34] LABS: POINT-OF-CARE METER ID UU14174225
[2017-01-02 19:09] LABS: HEMATOCRIT 26.5 % (36.0-46.0); MCH 28.7 PG (29.0-34.0); MCHC 29.4 G/DL (30.0-36.0); MCV 97.4 FL (83-99); MEAN PLAT.VOLUME 8.7 uM^3 (9.5-12.4); PLATELET COUNT 466 K/uL (156-360); RBC DIS.WIDTH-SD 72.5 % (39-53); RED BLOOD COUNT 2.72 M/uL (3.80-5.20); WHITE BLOOD COUNT 13.8 K/uL (4.1-10.2)
[2017-01-02 20:03] VITALS: BP 133/65
[2017-01-02 21:37] LABS: POINT-OF-CARE METER ID UU14174225
[2017-01-02 23:18] VITALS: BP 126/63
[2017-01-03 02:14] LABS: HEMATOCRIT 29.2 % (36.0-46.0); MCH 28.4 PG (29.0-34.0); MCHC 29.8 G/DL (30.0-36.0); MCV 95.4 FL (83-99); MEAN PLAT.VOLUME 8.5 uM^3 (9.5-12.4); PLATELET COUNT 544 K/uL (156-360); RBC DIS.WIDTH-CV 19.9 % (11.8-14.6); RBC DIS.WIDTH-SD 70.1 % (39-53); RED BLOOD COUNT 3.06 M/uL (3.80-5.20); WHITE BLOOD COUNT 14.1 K/uL (4.1-10.2)
[2017-01-03 03:20] VITALS: BP 122/69
[2017-01-03 07:43] VITALS: BP 140/74
[2017-01-03 08:17] LABS: HEMATOCRIT 31.4 % (36.0-46.0); MCH 28.6 PG (29.0-34.0); MCHC 29.6 G/DL (30.0-36.0); MCV 96.6 FL (83-99); MEAN PLAT.VOLUME 9.1 uM^3 (9.5-12.4); PLATELET COUNT 532 K/uL (156-360); RBC DIS.WIDTH-CV 19.9 % (11.8-14.6); RBC DIS.WIDTH-SD 70.2 % (39-53); RED BLOOD COUNT 3.25 M/uL (3.80-5.20); WHITE BLOOD COUNT 14.7 K/uL (4.1-10.2)
[2017-01-03 09:41] LABS: ANION GAP 3 MEQ/L (2-14); CHLORIDE 102 MEQ/L (99-109); GFR ESTIMATE (CALCULATED) > 59 mL/min/; GLUCOSE 86 mg/dL (70-99); POTASSIUM 4.2 MEQ/L (3.7-5.4); SAMPLE HEMOLYSIS CHECK 0; SAMPLE ICTERIC CHECK 0; SAMPLE LIPEMIA CHECK 0; SODIUM 136 MEQ/L (136-147); UREA NITROGEN (BUN) 10 mg/dL (9-23)
[2017-01-03 11:28] VITALS: BP 143/65
[2017-01-03 11:57] LABS: POINT-OF-CARE METER ID UU14188625
[2017-01-03 15:26] VITALS: BP 114/62
[2017-01-03 18:58] LABS: EOSINOPHIL (%) 3.5 % (0-5); EOSINOPHIL COUNT 0.5 K/uL (0-0.3); IMMATURE GRANULOCYTE (%) 0.7 % (0.0-0.7); IMMATURE GRANULOCYTE COUNT 0.1 K/uL; MONOCYTE (%) 7.7 % (3-12); MONOCYTE COUNT 1.1 K/uL (0-0.8); NEUTROPHIL (%) 81.3 % (45-76)
[2017-01-03 19:48] VITALS: BP 152/74
[2017-01-03 21:48] LABS: POINT-OF-CARE METER ID UU14174225
[2017-01-03 23:48] VITALS: BP 133/59
[2017-01-04] VITALS (7 sets, daily range): BP systolic 122–138; BP diastolic 57–86
[2017-01-04 07:07] LABS: EOSINOPHIL (%) 4.6 % (0-5); EOSINOPHIL COUNT 0.5 K/uL (0-0.3); IMMATURE GRANULOCYTE (%) 0.9 % (0.0-0.7); IMMATURE GRANULOCYTE COUNT 0.1 K/uL; LYMPHOCYTE COUNT 0.9 K/uL (1.0-2.8); MCH 28.1 PG (29.0-34.0); MCHC 28.7 G/DL (30.0-36.0); MCV 97.8 FL (83-99); MEAN PLAT.VOLUME 8.8 uM^3 (9.5-12.4); MONOCYTE (%) 8.8 % (3-12); NEUTROPHIL (%) 77.3 % (45-76); PLATELET COUNT 542 K/uL (156-360); RBC DIS.WIDTH-CV 19.5 % (11.8-14.6); RED BLOOD COUNT 3.17 M/uL (3.80-5.20); WHITE BLOOD COUNT 11.6 K/uL (4.1-10.2)
[2017-01-04 07:33] LABS: ANION GAP 6 MEQ/L (2-14); CHLORIDE 103 MEQ/L (99-109); GFR ESTIMATE (CALCULATED) > 59 mL/min/; GLUCOSE 64 mg/dL (70-99); POTASSIUM 4.2 MEQ/L (3.7-5.4); SAMPLE HEMOLYSIS CHECK 0; SAMPLE ICTERIC CHECK 0; SAMPLE LIPEMIA CHECK 0; SODIUM 142 MEQ/L (136-147); UREA NITROGEN (BUN) 10 mg/dL (9-23)
[2017-01-04 07:51] LABS: POINT-OF-CARE METER ID UU14188625
[2017-01-04 08:18] LABS: POINT-OF-CARE METER ID UU14188625
[2017-01-04 09:03] LABS: POINT-OF-CARE METER ID UU14188625
[2017-01-04 11:34] LABS: POINT-OF-CARE METER ID UU14188625
[2017-01-04 16:52] LABS: POINT-OF-CARE METER ID UU14174225
[2017-01-04 21:05] LABS: POINT-OF-CARE METER ID UU14188625
[2017-01-05 03:48] VITALS: BP 147/67
[2017-01-05 06:52] LABS: ANION GAP 6 MEQ/L (2-14); C-REACTIVE PROTEIN 99.5 MG/L (0-10); CHLORIDE 104 MEQ/L (99-109); GFR ESTIMATE (CALCULATED) > 59 mL/min/; GLUCOSE 74 mg/dL (70-99); SAMPLE HEMOLYSIS CHECK 1; SAMPLE ICTERIC CHECK 0; SAMPLE LIPEMIA CHECK 0; SODIUM 141 MEQ/L (136-147); UREA NITROGEN (BUN) 10 mg/dL (9-23)
[2017-01-05 06:54] LABS: POTASSIUM 4.7 MEQ/L (3.7-5.4)
[2017-01-05 07:51] VITALS: BP 121/63
[2017-01-05 08:20] LABS: EOSINOPHIL (%) 5.5 % (0-5); EOSINOPHIL COUNT 0.6 K/uL (0-0.3); HEMATOCRIT 31.7 % (36.0-46.0); IMMATURE GRANULOCYTE (%) 0.7 % (0.0-0.7); IMMATURE GRANULOCYTE COUNT 0.1 K/uL; INSTRUMENT ABS NEUTROPHIL CT 8.1 K/uL; MCH 27.9 PG (29.0-34.0); MCHC 28.7 G/DL (30.0-36.0); MCV 97.2 FL (83-99); MEAN PLAT.VOLUME 8.9 uM^3 (9.5-12.4); MONOCYTE (%) 8.7 % (3-12); MONOCYTE COUNT 0.9 K/uL (0-0.8); NEUTROPHIL (%) 75.8 % (45-76); NEUTROPHIL COUNT 8.1 K/uL (1.8-6.4); PLATELET COUNT 512 K/uL (156-360); RBC DIS.WIDTH-CV 19.1 % (11.8-14.6); RBC DIS.WIDTH-SD 68.6 % (39-53); RED BLOOD COUNT 3.26 M/uL (3.80-5.20); WHITE BLOOD COUNT 10.7 K/uL (4.1-10.2)
[2017-01-05 09:04] LABS: ERTH.SED.RATE 46 MM/HR (0-30)
[2017-01-05 12:31] VITALS: BP 146/78
[2017-01-05 16:07] VITALS: BP 143/66
[2017-01-05 17:12] LABS: POINT-OF-CARE METER ID UU14174225
[2017-01-05 19:50] VITALS: BP 146/65
[2017-01-05 20:14] LABS: POINT-OF-CARE METER ID UU14174225
[2017-01-06] VITALS: BP 140/72
[2017-01-06 03:58] VITALS: BP 164/71
[2017-01-06 06:42] LABS: EOSINOPHIL (%) 5.2 % (0-5); EOSINOPHIL COUNT 0.6 K/uL (0-0.3); HEMATOCRIT 30.3 % (36.0-46.0); IMMATURE GRANULOCYTE (%) 0.6 % (0.0-0.7); IMMATURE GRANULOCYTE COUNT 0.1 K/uL; INSTRUMENT ABS NEUTROPHIL CT 8.3 K/uL; MCH 28.1 PG (29.0-34.0); MCV 96.8 FL (83-99); MEAN PLAT.VOLUME 9.2 uM^3 (9.5-12.4); MONOCYTE (%) 8.4 % (3-12); MONOCYTE COUNT 0.9 K/uL (0-0.8); NEUTROPHIL (%) 76.1 % (45-76); NEUTROPHIL COUNT 8.3 K/uL (1.8-6.4); PLATELET COUNT 522 K/uL (156-360); RBC DIS.WIDTH-CV 19.2 % (11.8-14.6); RBC DIS.WIDTH-SD 67.8 % (39-53); RED BLOOD COUNT 3.13 M/uL (3.80-5.20); WHITE BLOOD COUNT 10.9 K/uL (4.1-10.2)
[2017-01-06 07:10] LABS: ANION GAP 7 MEQ/L (2-14); CHLORIDE 105 MEQ/L (99-109); GFR ESTIMATE (CALCULATED) > 59 mL/min/; GLUCOSE 76 mg/dL (70-99); POTASSIUM 4.1 MEQ/L (3.7-5.4); SAMPLE HEMOLYSIS CHECK 0; SAMPLE ICTERIC CHECK 0; SAMPLE LIPEMIA CHECK 0; SODIUM 141 MEQ/L (136-147); UREA NITROGEN (BUN) 11 mg/dL (9-23)
[2017-01-06 07:30] VITALS: BP 134/64
[2017-01-06 15:26] VITALS: BP 141/66
[2017-01-06 20:00] VITALS: BP 138/62
[2017-01-06 21:20] LABS: POINT-OF-CARE METER ID UU14188625
[2017-01-06 23:41] VITALS: BP 128/62
[2017-01-07 04:00] VITALS: BP 154/69
[2017-01-07 07:11] LABS: EOSINOPHIL (%) 3.6 % (0-5); EOSINOPHIL COUNT 0.4 K/uL (0-0.3); HEMATOCRIT 31.5 % (36.0-46.0); IMMATURE GRANULOCYTE (%) 0.7 % (0.0-0.7); IMMATURE GRANULOCYTE COUNT 0.1 K/uL; INSTRUMENT ABS NEUTROPHIL CT 8.7 K/uL; LYMPHOCYTE COUNT 0.7 K/uL (1.0-2.8); MCH 28.4 PG (29.0-34.0); MCHC 29.5 G/DL (30.0-36.0); MEAN PLAT.VOLUME 9.3 uM^3 (9.5-12.4); MONOCYTE (%) 7.8 % (3-12); MONOCYTE COUNT 0.8 K/uL (0-0.8); NEUTROPHIL COUNT 8.7 K/uL (1.8-6.4); PLATELET COUNT 545 K/uL (156-360); RBC DIS.WIDTH-CV 19.1 % (11.8-14.6); RBC DIS.WIDTH-SD 67.7 % (39-53); RED BLOOD COUNT 3.28 M/uL (3.80-5.20); WHITE BLOOD COUNT 10.7 K/uL (4.1-10.2)
[2017-01-07 08:09] LABS: POINT-OF-CARE METER ID UU14188625
[2017-01-07 08:36] LABS: CHLORIDE 106 mEq/L (99-109); POTASSIUM 4.2 mEq/L (3.7-5.4); SODIUM 142 mEq/L (136-147)
[2017-01-07 08:38] LABS: GLUCOSE 74 mg/dL (70-99)
[2017-01-07 08:39] LABS: ANION GAP 10 MEQ/L (2-14)
[2017-01-07 08:42] LABS: GFR ESTIMATE (CALCULATED) > 59 mL/min/
[2017-01-07 08:43] LABS: UREA NITROGEN (BUN) 11 mg/dL (9-23)
[2017-01-07 08:45] VITALS: BP 146/62
[2017-01-07 09:09] LABS: C DIFF TOXIN POSITIVE (NEGATIVE)
[2017-01-07 09:11] LABS: PROBE CHECK PASS
[2017-01-07 09:37] LABS: POINT-OF-CARE METER ID UU14174225
[2017-01-07 11:28] VITALS: BP 132/80
[2017-01-07 16:31] VITALS: BP 130/80
[2017-01-07 20:17] VITALS: BP 130/57
[2017-01-08] VITALS: BP 143/62
[2017-01-08 04:04] VITALS: BP 128/62
[2017-01-08 06:53] LABS: BASOPHIL COUNT 0.1 K/uL (0-0.1); EOSINOPHIL (%) 5.9 % (0-5); EOSINOPHIL COUNT 0.5 K/uL (0-0.3); HEMATOCRIT 30.1 % (36.0-46.0); IMMATURE GRANULOCYTE (%) 0.8 % (0.0-0.7); IMMATURE GRANULOCYTE COUNT 0.1 K/uL; INSTRUMENT ABS NEUTROPHIL CT 6.3 K/uL; MCH 27.7 PG (29.0-34.0); MCHC 28.6 G/DL (30.0-36.0); MCV 96.8 FL (83-99); MONOCYTE (%) 8.8 % (3-12); MONOCYTE COUNT 0.8 K/uL (0-0.8); NEUTROPHIL (%) 72.8 % (45-76); NEUTROPHIL COUNT 6.3 K/uL (1.8-6.4); PLATELET COUNT 449 K/uL (156-360); RBC DIS.WIDTH-CV 19.1 % (11.8-14.6); RBC DIS.WIDTH-SD 67.7 % (39-53); RED BLOOD COUNT 3.11 M/uL (3.80-5.20); WHITE BLOOD COUNT 8.6 K/uL (4.1-10.2)
[2017-01-08 07:20] LABS: ANION GAP 5 MEQ/L (2-14); CHLORIDE 106 MEQ/L (99-109); GFR ESTIMATE (CALCULATED) > 59 mL/min/; GLUCOSE 73 mg/dL (70-99); POTASSIUM 3.7 MEQ/L (3.7-5.4); SAMPLE HEMOLYSIS CHECK 0; SAMPLE ICTERIC CHECK 0; SAMPLE LIPEMIA CHECK 0; SODIUM 142 MEQ/L (136-147); UREA NITROGEN (BUN) 11 mg/dL (9-23)
[2017-01-08 08:54] VITALS: BP 142/74
[2017-01-08 12:27] LABS: POINT-OF-CARE METER ID UU14188625
[2017-01-08 12:48] VITALS: BP 145/76
[2017-01-08 16:25] VITALS: BP 140/78
[2017-01-08 19:38] VITALS: BP 137/63
[2017-01-09 00:53] VITALS: BP 130/60
[2017-01-09 06:41] LABS: EOSINOPHIL (%) 4.4 % (0-5); EOSINOPHIL COUNT 0.4 K/uL (0-0.3); HEMATOCRIT 30.5 % (36.0-46.0); IMMATURE GRANULOCYTE (%) 0.9 % (0.0-0.7); IMMATURE GRANULOCYTE COUNT 0.1 K/uL; INSTRUMENT ABS NEUTROPHIL CT 7.6 K/uL; MCH 27.8 PG (29.0-34.0); MCHC 28.9 G/DL (30.0-36.0); MCV 96.5 FL (83-99); MEAN PLAT.VOLUME 9.2 uM^3 (9.5-12.4); MONOCYTE (%) 7.8 % (3-12); MONOCYTE COUNT 0.8 K/uL (0-0.8); NEUTROPHIL (%) 76.8 % (45-76); NEUTROPHIL COUNT 7.6 K/uL (1.8-6.4); PLATELET COUNT 494 K/uL (156-360); RBC DIS.WIDTH-CV 18.6 % (11.8-14.6); RBC DIS.WIDTH-SD 65.5 % (39-53); RED BLOOD COUNT 3.16 M/uL (3.80-5.20); WHITE BLOOD COUNT 9.9 K/uL (4.1-10.2)
[2017-01-09 07:04] LABS: ANION GAP 5 MEQ/L (2-14); CHLORIDE 106 MEQ/L (99-109); GFR ESTIMATE (CALCULATED) > 59 mL/min/; GLUCOSE 82 mg/dL (70-99); POTASSIUM 3.8 MEQ/L (3.7-5.4); SAMPLE HEMOLYSIS CHECK 0; SAMPLE ICTERIC CHECK 0; SAMPLE LIPEMIA CHECK 0; SODIUM 141 MEQ/L (136-147); UREA NITROGEN (BUN) 10 mg/dL (9-23)
[2017-01-09 08:10] VITALS: BP 131/65
[2017-01-09 12:47] VITALS: BP 134/67
[2017-01-09 16:53] VITALS: BP 134/69
[2017-01-09 20:40] VITALS: BP 146/67
[2017-01-09 21:31] LABS: POINT-OF-CARE METER ID UU14174225
[2017-01-10 00:13] VITALS: BP 140/71
[2017-01-10 04:07] VITALS: BP 144/70
[2017-01-10 07:25] VITALS: BP 136/69
[2017-01-10 11:20] VITALS: BP 143/65
[2017-01-10 15:33] VITALS: BP 125/60
== END 2017-01-10 18:23 | disposition short-term general hospital (02) | DRG 803 ==
LOC: EME → EDBD 12:49 → EDOF 14:50 → 5SOUTH 14:50
PROVIDERS: Emergency Medicine; Internal Medicine
PROC: 30233N1 Transfusion of Nonautologous Red Blood Cells into Peripheral Vein, Percutaneous Approach (ICD-10-PCS; principal; 2016-12-31)
PROC: 0HBJXZZ Excision of Left Upper Leg Skin, External Approach (ICD-10-PCS; 2017-01-03)
DX: D62 Acute posthemorrhagic anemia (principal); J96.10 Chronic respiratory failure, unspecified whether with hypoxia or hypercapnia; I50.32 Chronic diastolic (congestive) heart failure; I13.0 Hypertensive heart and chronic kidney disease with heart failure and stage 1 through stage 4 chronic kidney disease, or unspecified chronic kidney disease; T81.31XA Disruption of external operation (surgical) wound, not elsewhere classified, initial encounter; A04.7 Enterocolitis due to Clostridium difficile; J98.11 Atelectasis; S20.02XA Contusion of left breast, initial encounter; W24.0XXA Contact with lifting devices, not elsewhere classified, initial encounter; J44.9 Chronic obstructive pulmonary disease, unspecified; Y92.129 Unspecified place in nursing home as the place of occurrence of the external cause; D47.3 Essential (hemorrhagic) thrombocythemia; Z96.651 Presence of right artificial knee joint; D63.8 Anemia in other chronic diseases classified elsewhere; N18.9 Chronic kidney disease, unspecified; D63.1 Anemia in chronic kidney disease; Z87.891 Personal history of nicotine dependence; N39.3 Stress incontinence (female) (male); E11.22 Type 2 diabetes mellitus with diabetic chronic kidney disease; E66.01 Morbid (severe) obesity due to excess calories; Z68.38 Body mass index [BMI] 38.0-38.9, adult; Z86.711 Personal history of pulmonary embolism; Z79.01 Long term (current) use of anticoagulants; Z86.718 Personal history of other venous thrombosis and embolism; Y83.8 Other surgical procedures as the cause of abnormal reaction of the patient, or of later complication, without mention of misadventure at the time of the procedure; E88.09 Other disorders of plasma-protein metabolism, not elsewhere classified; E11.42 Type 2 diabetes mellitus with diabetic polyneuropathy; L30.8 Other specified dermatitis; L89.320 Pressure ulcer of left buttock, unstageable; L89.322 Pressure ulcer of left buttock, stage 2; L89.312 Pressure ulcer of right buttock, stage 2; S51.012A Laceration without foreign body of left elbow, initial encounter; L30.4 Erythema intertrigo
CPT/HCPCS: 71250; 71270; 73502; 80048; 80053; 82330; 82607; 82728; 82746; 82948; 84466; 85025; 85027; 85045; 85610; 85651; 86140; 86850; 86900; 86901; 86920; 87493; 93970; 94640 76; 94760; 94799; 99202; 99281; 99285; J1815; J2270; J2405; P9016; S0030

== ENCOUNTER 2017-01-20 21:30 | Inpatient (IN) | payer OTHER ==
[~2017-01-20] VITALS: Ht 152.4 cm; Wt 91.0 kg
[~2017-01-20 21:30] MED LIST changes: +ASCORBIC ACID250 MG PO; +BREO ELLIPTA I1 EACH IH; +CARDIZEM CD,CA120 MG PO; +DIAZEPAM5 MG PO; +DUONEB 2.5-0.5 M3 ML AEROSOL; +FLEET ENEMA-AD118 ML PR; +GLUCOSE GEL15 GM PO; +KLOR-CON 1010 ME1 PO; +LEVO-T200 MCG PO; +MILK OF MAGN PO; +MIRALAX17 GM PO; +OXAYDO5 MG PO; +OXYCONTIN10 MG PO; +PAIN & FEVER325 MG PO; +REQUIP0.25 MG PO; +SENNA-S TABLET1 EACH PO; +SENNA8.6 MG PO
[2017-01-20 22:22] LABS: POINT-OF-CARE METER ID UU13113702
[2017-01-20 22:46] LABS: EOSINOPHIL COUNT 0.3 K/uL (0-0.3); HEMATOCRIT 36.1 % (36.0-46.0); IMMATURE GRANULOCYTE (%) 0.5 % (0.0-0.7); IMMATURE GRANULOCYTE COUNT 0.1 K/uL; INSTRUMENT ABS NEUTROPHIL CT 10.9 K/uL; LYMPHOCYTE COUNT 0.8 K/uL (1.0-2.8); MCH 28.6 PG (29.0-34.0); MCHC 29.6 G/DL (30.0-36.0); MCV 96.5 FL (83-99); MEAN PLAT.VOLUME 8.9 uM^3 (9.5-12.4); MONOCYTE (%) 7.6 % (3-12); NEUTROPHIL (%) 83.9 % (45-76); NEUTROPHIL COUNT 10.9 K/uL (1.8-6.4); PLATELET COUNT 775 K/uL (156-360); RBC DIS.WIDTH-SD 70.4 % (39-53); RED BLOOD COUNT 3.74 M/uL (3.80-5.20)
[2017-01-20 22:51] LABS: CHLORIDE 103 mEq/L (99-109); INTER. NORMALIZED RATIO 1.3; POTASSIUM 3.2 mEq/L (3.7-5.4); PTT 28.9 (25-32); SODIUM 141 mEq/L (136-147)
[2017-01-20 22:53] LABS: GLUCOSE 102 mg/dL (70-99)
[2017-01-20 22:54] LABS: ANION GAP 7 MEQ/L (2-14)
[2017-01-20 22:55] LABS: TOTAL BILIRUBIN 0.2 mg/dL (0.0-1.0)
[2017-01-20 22:56] LABS: ALKALINE PHOSPHATASE 167 IU/L (3-129)
[2017-01-20 22:57] LABS: GFR ESTIMATE (CALCULATED) > 59 mL/min/
[2017-01-20 22:58] LABS: UREA NITROGEN (BUN) 5 mg/dL (9-23)
[2017-01-20 23:00] LABS: LIPASE 2 U/L (1.0-51.0); TROP-I INTERPRETATION NEGATIVE; TROPONIN-I < 0.01 ng/mL (0.0-0.30)
[2017-01-20 23:35] LABS: POINT-OF-CARE METER ID UU13113702
[2017-01-21 00:43] LABS: ADD MIUA? YES; BILIRUBIN NEGATIVE; BLOOD SMALL; COLOR DK YELLOW ((YELLOW)); GLUCOSE (STRIP) NEGATIVE; KETONES NEGATIVE; LEUKOCYTES MODERATE; NITRITE NEGATIVE; PROTEIN (STRIP) 30; SPECIFIC GRAVITY 1.016 (1.000-1.030); UROBILINOGEN 0.2 MG/DL (0.2-1.0)
[2017-01-21 00:53] LABS: BACTERIA NONE SEEN /HPF; EPITHELIAL CELLS NONE SEEN /HPF; GRANULAR CASTS TNTC /LPF; HYALINE CASTS 0-5 /LPF; MUCUS TRACE /LPF; WHITE BLOOD CELLS TNTC /HPF (0-5)
[2017-01-21] MEDS ORDERED: LO-DOSE ASPIRIN81 M2 PO (01:15)
[2017-01-21] MEDS ORDERED: ROCEPHIN 2 GM VI2 GM IV (01:16)
[2017-01-21] MEDS ORDERED: LANTUS 10100 UNITS/ SC (01:18)
[2017-01-21] MEDS ORDERED: LOVENOX40 MG/0.4 SC (01:20)
[2017-01-21] MEDS ORDERED: VANCOMYCIN750 MG/151 IV (01:23)
[2017-01-21] MEDS ORDERED: ADVAIR 250/501 DISK IH (01:24)
[2017-01-21] MEDS ORDERED: COLACE100 MG PO (01:25)
[2017-01-21] MEDS ORDERED: FLORASTOR250 MG PO (01:25)
[2017-01-21] MEDS ORDERED: FLAGYL500 MG PO (01:29)
[2017-01-21] MEDS ORDERED: NOVOLOG 10100 UNITS/ SC (01:33)
[2017-01-21] MEDS ORDERED: [UNRECOGNIZED DRUG - CODE] PO (01:35)
[2017-01-21 02:28] LABS: POINT-OF-CARE METER ID UU14174216
[2017-01-21 03:29] VITALS: BP 134/76
[2017-01-21 03:45] LABS: INFLUENZA A VIRAL ANTIGEN NEGATIVE; INFLUENZA B VIRAL ANTIGEN NEGATIVE
[2017-01-21 04:26] LABS: METH RESISTANT S AUREUS PCR POSITIVE (NEGATIVE)
[2017-01-21 04:28] LABS: PROBE CHECK PASS
[2017-01-21 04:43] LABS: POINT-OF-CARE METER ID UU13113781
[2017-01-21 06:01] LABS: POINT-OF-CARE METER ID UU13113781
[2017-01-21 07:18] LABS: HDL CHOLESTEROL 20 MG/DL (Desirable>=50); LDL CHOLESTEROL 53 mg/dL (Desirable<100); NON-HDL CHOLESTEROL 67 mg/dL (Desirable<160); TOTAL CHOLESTEROL 87 mg/dL (Desirable<200); TRIGLYCERIDES 72 MG/DL (Normal: <150)
[2017-01-21 07:33] LABS: VANCOMYCIN, TROUGH 9.7 MCG/ML (10-20)
[2017-01-21 07:51] LABS: EOSINOPHIL COUNT 0.1 K/uL (0-0.3); HEMATOCRIT 32.2 % (36.0-46.0); IMMATURE GRANULOCYTE (%) 0.6 % (0.0-0.7); IMMATURE GRANULOCYTE COUNT 0.1 K/uL; LYMPHOCYTE COUNT 0.5 K/uL (1.0-2.8); MCH 27.9 PG (29.0-34.0); MCHC 28.3 G/DL (30.0-36.0); MCV 98.8 FL (83-99); MEAN PLAT.VOLUME 9.3 uM^3 (9.5-12.4); MONOCYTE (%) 6.6 % (3-12); MONOCYTE COUNT 0.9 K/uL (0-0.8); NEUTROPHIL (%) 88.2 % (45-76); PLATELET COUNT 695 K/uL (156-360); RBC DIS.WIDTH-SD 72.5 % (39-53); RED BLOOD COUNT 3.26 M/uL (3.80-5.20); WHITE BLOOD COUNT 13.6 K/uL (4.1-10.2)
[2017-01-21 08:09] LABS: POINT-OF-CARE USER ID ENVKC36
[2017-01-21 08:10] LABS: ANION GAP 7 MEQ/L (2-14); CHLORIDE 104 MEQ/L (99-109); GFR ESTIMATE (CALCULATED) > 59 mL/min/; GLUCOSE 94 mg/dL (70-99); POTASSIUM 3.4 MEQ/L (3.7-5.4); SODIUM 142 MEQ/L (136-147); UREA NITROGEN (BUN) 5 mg/dL (9-23)
[2017-01-21 09:05] VITALS: BP 155/61
[2017-01-21 11:35] VITALS: BP 112/59
[2017-01-21 12:06] LABS: POINT-OF-CARE METER ID UU14174216; POINT-OF-CARE USER ID ENVKC36
[2017-01-21 15:30] VITALS: BP 121/67
[2017-01-21 16:31] LABS: POINT-OF-CARE METER ID UU14174216
[2017-01-21 20:00] VITALS: BP 105/61
[2017-01-21 21:09] LABS: POINT-OF-CARE METER ID UU14174216
[2017-01-22 00:15] VITALS: BP 110/62
[2017-01-22 02:35] LABS: POINT-OF-CARE METER ID UU14174216; POINT-OF-CARE USER ID ENVMNS
[2017-01-22 04:00] VITALS: BP 101/62
[2017-01-22 06:03] LABS: EOSINOPHIL COUNT 0.2 K/uL (0-0.3); HEMATOCRIT 32.1 % (36.0-46.0); IMMATURE GRANULOCYTE (%) 0.4 % (0.0-0.7); INSTRUMENT ABS NEUTROPHIL CT 6.2 K/uL; LYMPHOCYTE COUNT 0.7 K/uL (1.0-2.8); MCH 27.9 PG (29.0-34.0); MCHC 28.7 G/DL (30.0-36.0); MCV 97.3 FL (83-99); MONOCYTE (%) 8.4 % (3-12); MONOCYTE COUNT 0.7 K/uL (0-0.8); NEUTROPHIL COUNT 6.2 K/uL (1.8-6.4); PLATELET COUNT 629 K/uL (156-360); RBC DIS.WIDTH-CV 20.4 % (11.8-14.6); RBC DIS.WIDTH-SD 72.6 % (39-53)
[2017-01-22 06:09] LABS: WHITE BLOOD COUNT 7.9 K/uL (4.1-10.2)
[2017-01-22 06:10] LABS: ANION GAP 4 MEQ/L (2-14); CHLORIDE 102 MEQ/L (99-109); GFR ESTIMATE (CALCULATED) > 59 mL/min/; GLUCOSE 86 mg/dL (70-99); POTASSIUM 3.2 MEQ/L (3.7-5.4); SAMPLE HEMOLYSIS CHECK 0; SAMPLE ICTERIC CHECK 0; SAMPLE LIPEMIA CHECK 0; SODIUM 142 MEQ/L (136-147); UREA NITROGEN (BUN) 4 mg/dL (9-23)
[2017-01-22 08:00] VITALS: BP 128/60
[2017-01-22 08:47] LABS: POINT-OF-CARE METER ID UU14174216
[2017-01-22 12:45] VITALS: BP 112/60
[2017-01-22 15:40] VITALS: BP 118/64
[2017-01-22] MEDS ORDERED: BENADRYL25 MG PO (19:14)
[2017-01-22] MEDS ORDERED: NYSTATIN100000 UN1 PO (19:14)
[2017-01-22] MEDS ORDERED: DULCOLAX10 MG PR (19:15)
[2017-01-22] MEDS ORDERED: ZOFRAN4 MG PO (19:15)
[2017-01-22 20:00] VITALS: BP 130/68
[2017-01-23 00:11] VITALS: BP 131/79
[2017-01-23 04:41] VITALS: BP 124/73
[2017-01-23 06:01] LABS: BASOPHIL COUNT 0.1 K/uL (0-0.1); EOSINOPHIL (%) 5.1 % (0-5); EOSINOPHIL COUNT 0.4 K/uL (0-0.3); HEMATOCRIT 31.7 % (36.0-46.0); IMMATURE GRANULOCYTE (%) 0.4 % (0.0-0.7); INSTRUMENT ABS NEUTROPHIL CT 5.5 K/uL; LYMPHOCYTE COUNT 0.9 K/uL (1.0-2.8); MCV 96.4 FL (83-99); MONOCYTE (%) 8.8 % (3-12); MONOCYTE COUNT 0.7 K/uL (0-0.8); NEUTROPHIL (%) 72.9 % (45-76); NEUTROPHIL COUNT 5.5 K/uL (1.8-6.4); PLATELET COUNT 651 K/uL (156-360); RBC DIS.WIDTH-CV 20.9 % (11.8-14.6); RBC DIS.WIDTH-SD 73.5 % (39-53); RED BLOOD COUNT 3.29 M/uL (3.80-5.20); WHITE BLOOD COUNT 7.5 K/uL (4.1-10.2)
[2017-01-23 06:45] LABS: ANION GAP 4 MEQ/L (2-14); CHLORIDE 98 MEQ/L (99-109); GFR ESTIMATE (CALCULATED) > 59 mL/min/; GLUCOSE 106 mg/dL (70-99); POTASSIUM 3.1 MEQ/L (3.7-5.4); SAMPLE HEMOLYSIS CHECK 0; SAMPLE ICTERIC CHECK 0; SAMPLE LIPEMIA CHECK 0; SODIUM 138 MEQ/L (136-147); UREA NITROGEN (BUN) 4 mg/dL (9-23)
[2017-01-23 08:03] VITALS: BP 114/60
[2017-01-23 08:19] LABS: POINT-OF-CARE METER ID UU13113781
[2017-01-23 11:02] VITALS: BP 114/66
[2017-01-23 12:26] LABS: POINT-OF-CARE METER ID UU14174216
[2017-01-23 16:14] VITALS: BP 114/60
[2017-01-23 21:49] VITALS: BP 120/70
[2017-01-24 04:10] VITALS: BP 110/62
[2017-01-24 07:11] LABS: BASOPHIL COUNT 0.1 K/uL (0-0.1); EOSINOPHIL (%) 4.3 % (0-5); EOSINOPHIL COUNT 0.4 K/uL (0-0.3); HEMATOCRIT 30.9 % (36.0-46.0); IMMATURE GRANULOCYTE (%) 0.6 % (0.0-0.7); IMMATURE GRANULOCYTE COUNT 0.1 K/uL; INSTRUMENT ABS NEUTROPHIL CT 6.3 K/uL; LYMPHOCYTE COUNT 0.9 K/uL (1.0-2.8); MCHC 29.8 G/DL (30.0-36.0); MCV 93.9 FL (83-99); MEAN PLAT.VOLUME 8.9 uM^3 (9.5-12.4); MONOCYTE (%) 9.7 % (3-12); MONOCYTE COUNT 0.8 K/uL (0-0.8); NEUTROPHIL (%) 73.9 % (45-76); NEUTROPHIL COUNT 6.3 K/uL (1.8-6.4); PLATELET COUNT 659 K/uL (156-360); RBC DIS.WIDTH-CV 20.8 % (11.8-14.6); RBC DIS.WIDTH-SD 71.7 % (39-53); RED BLOOD COUNT 3.29 M/uL (3.80-5.20); WHITE BLOOD COUNT 8.5 K/uL (4.1-10.2)
[2017-01-24 07:33] LABS: ANION GAP 2 MEQ/L (2-14); CHLORIDE 101 MEQ/L (99-109); GFR ESTIMATE (CALCULATED) > 59 mL/min/; GLUCOSE 91 mg/dL (70-99); POTASSIUM 3.5 MEQ/L (3.7-5.4); SAMPLE HEMOLYSIS CHECK 0; SAMPLE ICTERIC CHECK 0; SAMPLE LIPEMIA CHECK 0; SODIUM 141 MEQ/L (136-147); UREA NITROGEN (BUN) 5 mg/dL (9-23)
[2017-01-24 08:29] LABS: POINT-OF-CARE METER ID UU14174216
[2017-01-24 08:36] VITALS: BP 145/60
[2017-01-24 11:01] LABS: POINT-OF-CARE METER ID UU13113702
[2017-01-24 11:38] LABS: POINT-OF-CARE METER ID UU14174216
[2017-01-24 12:45] VITALS: BP 132/76
[2017-01-24 16:20] VITALS: BP 126/60
[2017-01-24 16:23] LABS: POINT-OF-CARE METER ID UU14174216
[2017-01-24 21:33] VITALS: BP 118/92
[2017-01-25] VITALS (8 sets, daily range): BP systolic 118–129; BP diastolic 59–80
[2017-01-25 07:17] LABS: BASOPHIL COUNT 0.1 K/uL (0-0.1); EOSINOPHIL (%) 3.2 % (0-5); EOSINOPHIL COUNT 0.3 K/uL (0-0.3); HEMATOCRIT 31.9 % (36.0-46.0); IMMATURE GRANULOCYTE (%) 0.6 % (0.0-0.7); IMMATURE GRANULOCYTE COUNT 0.1 K/uL; MCH 27.9 PG (29.0-34.0); MCHC 29.5 G/DL (30.0-36.0); MCV 94.7 FL (83-99); MEAN PLAT.VOLUME 9.6 uM^3 (9.5-12.4); MONOCYTE (%) 7.5 % (3-12); MONOCYTE COUNT 0.7 K/uL (0-0.8); NEUTROPHIL (%) 77.4 % (45-76); PLATELET COUNT 645 K/uL (156-360); RBC DIS.WIDTH-CV 21.2 % (11.8-14.6); RED BLOOD COUNT 3.37 M/uL (3.80-5.20)
[2017-01-25 07:43] LABS: ANION GAP 5 MEQ/L (2-14); CHLORIDE 101 MEQ/L (99-109); GFR ESTIMATE (CALCULATED) > 59 mL/min/; GLUCOSE 79 mg/dL (70-99); POTASSIUM 3.9 MEQ/L (3.7-5.4); SAMPLE HEMOLYSIS CHECK 0; SAMPLE ICTERIC CHECK 0; SAMPLE LIPEMIA CHECK 0; SODIUM 142 MEQ/L (136-147); UREA NITROGEN (BUN) 6 mg/dL (9-23)
[2017-01-26 04:12] VITALS: BP 139/67
[2017-01-26 05:29] LABS: HEMATOCRIT 32.7 % (36.0-46.0); MCHC 29.7 G/DL (30.0-36.0); MCV 94.5 FL (83-99); PLATELET COUNT 603 K/uL (156-360); RBC DIS.WIDTH-SD 71.9 % (39-53); RED BLOOD COUNT 3.46 M/uL (3.80-5.20); WHITE BLOOD COUNT 8.2 K/uL (4.1-10.2)
[2017-01-26 05:53] LABS: ANION GAP 5 MEQ/L (2-14); CHLORIDE 98 MEQ/L (99-109); GFR ESTIMATE (CALCULATED) > 59 mL/min/; GLUCOSE 77 mg/dL (70-99); POTASSIUM 3.4 MEQ/L (3.7-5.4); SAMPLE HEMOLYSIS CHECK 0; SAMPLE ICTERIC CHECK 0; SAMPLE LIPEMIA CHECK 0; SODIUM 142 MEQ/L (136-147); UREA NITROGEN (BUN) 7 mg/dL (9-23)
[2017-01-26 07:57] LABS: MAGNESIUM 1.6 mg/dl (1.3-2.7)
[2017-01-26 08:00] VITALS: BP 137/71
[2017-01-26 12:00] VITALS: BP 127/68
[2017-01-26 15:39] VITALS: BP 140/60
[2017-01-26 20:08] VITALS: BP 125/64
[2017-01-26 23:43] VITALS: BP 107/58
[2017-01-27 04:40] VITALS: BP 134/65
[2017-01-27 06:18] LABS: ANION GAP 8 MEQ/L (2-14); CHLORIDE 99 MEQ/L (99-109); GFR ESTIMATE (CALCULATED) > 59 mL/min/; GLUCOSE 80 mg/dL (70-99); MAGNESIUM 1.7 mg/dl (1.3-2.7); SAMPLE HEMOLYSIS CHECK 1; SAMPLE ICTERIC CHECK 0; SAMPLE LIPEMIA CHECK 0; SODIUM 142 MEQ/L (136-147); UREA NITROGEN (BUN) 9 mg/dL (9-23)
[2017-01-27 06:19] LABS: POTASSIUM 4.3 MEQ/L (3.7-5.4)
[2017-01-27 08:30] VITALS: BP 124/68
[2017-01-27 12:30] VITALS: BP 124/78
[2017-01-27 15:56] VITALS: BP 128/71
[2017-01-27 16:51] LABS: POINT-OF-CARE METER ID UU14188577
[2017-01-27 20:42] VITALS: BP 119/55
[2017-01-28 00:07] VITALS: BP 119/59
[2017-01-28 07:00] LABS: EOSINOPHIL (%) 3.9 % (0-5); EOSINOPHIL COUNT 0.4 K/uL (0-0.3); HEMATOCRIT 34.6 % (36.0-46.0); IMMATURE GRANULOCYTE (%) 0.5 % (0.0-0.7); IMMATURE GRANULOCYTE COUNT 0.1 K/uL; INSTRUMENT ABS NEUTROPHIL CT 7.5 K/uL; LYMPHOCYTE COUNT 0.9 K/uL (1.0-2.8); MCH 27.8 PG (29.0-34.0); MCHC 28.9 G/DL (30.0-36.0); MCV 96.1 FL (83-99); MEAN PLAT.VOLUME 9.4 uM^3 (9.5-12.4); MONOCYTE (%) 8.2 % (3-12); MONOCYTE COUNT 0.8 K/uL (0-0.8); NEUTROPHIL (%) 77.9 % (45-76); NEUTROPHIL COUNT 7.5 K/uL (1.8-6.4); PLATELET COUNT 481 K/uL (156-360); RBC DIS.WIDTH-CV 19.9 % (11.8-14.6); RBC DIS.WIDTH-SD 71.4 % (39-53); WHITE BLOOD COUNT 9.6 K/uL (4.1-10.2)
[2017-01-28 07:21] LABS: POINT-OF-CARE METER ID UU14188577
[2017-01-28 07:25] LABS: ANION GAP 4 MEQ/L (2-14); CHLORIDE 101 MEQ/L (99-109); GFR ESTIMATE (CALCULATED) > 59 mL/min/; GLUCOSE 88 mg/dL (70-99); MAGNESIUM 1.7 mg/dl (1.3-2.7); SAMPLE HEMOLYSIS CHECK 0; SAMPLE ICTERIC CHECK 0; SAMPLE LIPEMIA CHECK 0; SODIUM 143 MEQ/L (136-147); UREA NITROGEN (BUN) 9 mg/dL (9-23)
[2017-01-28 07:29] LABS: POTASSIUM 3.4 MEQ/L (3.7-5.4)
[2017-01-28 08:12] VITALS: BP 107/57; BP 139/62
[2017-01-28 11:56] VITALS: BP 128/60
[2017-01-28 16:42] VITALS: BP 122/85
[2017-01-28 19:58] VITALS: BP 125/69
[2017-01-28 21:39] LABS: POINT-OF-CARE METER ID UU14188577
[2017-01-28 23:23] VITALS: BP 139/82
[2017-01-29 04:37] VITALS: BP 156/70
[2017-01-29 05:31] LABS: HEMATOCRIT 33.5 % (36.0-46.0); MCH 28.4 PG (29.0-34.0); MCHC 29.6 G/DL (30.0-36.0); MEAN PLAT.VOLUME 9.5 uM^3 (9.5-12.4); PLATELET COUNT 443 K/uL (156-360); RBC DIS.WIDTH-CV 19.6 % (11.8-14.6); RED BLOOD COUNT 3.49 M/uL (3.80-5.20); WHITE BLOOD COUNT 11.7 K/uL (4.1-10.2)
[2017-01-29 05:56] LABS: ANION GAP 5 MEQ/L (2-14); CHLORIDE 103 MEQ/L (99-109); GFR ESTIMATE (CALCULATED) > 59 mL/min/; GLUCOSE 98 mg/dL (70-99); POTASSIUM 3.6 MEQ/L (3.7-5.4); SAMPLE HEMOLYSIS CHECK 0; SAMPLE ICTERIC CHECK 0; SAMPLE LIPEMIA CHECK 0; SODIUM 143 MEQ/L (136-147); UREA NITROGEN (BUN) 7 mg/dL (9-23)
[2017-01-29 06:21] LABS: POINT-OF-CARE METER ID UU14188577
[2017-01-29 08:46] VITALS: BP 118/76
[2017-01-29 11:36] VITALS: BP 120/76
[2017-01-29 17:15] VITALS: BP 130/70
[2017-01-29 19:57] VITALS: BP 148/70
[2017-01-29 21:54] LABS: POINT-OF-CARE METER ID UU14149397
[2017-01-29 23:31] VITALS: BP 130/64
[2017-01-30 05:05] VITALS: BP 136/66
[2017-01-30 05:36] LABS: HEMATOCRIT 33.3 % (36.0-46.0); MCH 27.6 PG (29.0-34.0); MCHC 29.1 G/DL (30.0-36.0); MCV 94.9 FL (83-99); MEAN PLAT.VOLUME 9.5 uM^3 (9.5-12.4); PLATELET COUNT 409 K/uL (156-360); RBC DIS.WIDTH-CV 19.5 % (11.8-14.6); RBC DIS.WIDTH-SD 68.6 % (39-53); RED BLOOD COUNT 3.51 M/uL (3.80-5.20)
[2017-01-30 05:49] LABS: CHLORIDE 105 mEq/L (99-109); POTASSIUM 3.4 mEq/L (3.7-5.4); SODIUM 144 mEq/L (136-147)
[2017-01-30 05:51] LABS: GLUCOSE 121 mg/dL (70-99)
[2017-01-30 05:52] LABS: ANION GAP 5 MEQ/L (2-14)
[2017-01-30 05:55] LABS: GFR ESTIMATE (CALCULATED) > 59 mL/min/
[2017-01-30 05:56] LABS: UREA NITROGEN (BUN) 7 mg/dL (9-23)
[2017-01-30 07:27] VITALS: BP 133/64
[2017-01-30] MEDS ORDERED: VANCOCIN HCL125 MG PO (11:55)
[2017-01-30] MEDS ORDERED: DIAZEPAM5 MG PO (11:55)
[2017-01-30] MEDS ORDERED: NOVOLOG 10100 UNITS/ SC (14:02)
[2017-01-30 16:31] VITALS: BP 120/58
[2017-01-30 17:14] LABS: POINT-OF-CARE METER ID UU14188577
[2017-01-30 19:52] VITALS: BP 128/65
[2017-01-30 21:28] LABS: POINT-OF-CARE METER ID UU14188577
[2017-01-31 00:21] VITALS: BP 135/63
[2017-01-31 06:48] LABS: POINT-OF-CARE METER ID UU14149397
[2017-01-31 08:33] VITALS: BP 136/74
[2017-01-31] MEDS ORDERED: OXYCONTIN10 MG PO (14:30)
== END 2017-01-31 15:09 | DRG 637 ==
LOC: EME 21:30 → 3EAST 01-21 00:35 → EDOF 01-21 00:35 → 4EAST 01-21 00:35 → 3EAST 01-25 16:58
PROVIDERS: Emergency Medicine; Internal Medicine; Physician Assistant; Physician Assistant Medical; Student in an Organized Health Care Education/Training Program
DX: E11.649 Type 2 diabetes mellitus with hypoglycemia without coma (principal); G93.41 Metabolic encephalopathy; L89.323 Pressure ulcer of left buttock, stage 3; T81.4XXA Infection following a procedure, initial encounter; J40 Bronchitis, not specified as acute or chronic; I82.622 Acute embolism and thrombosis of deep veins of left upper extremity; A04.7 Enterocolitis due to Clostridium difficile; B37.0 Candidal stomatitis; S20.02XD Contusion of left breast, subsequent encounter; S20.01XD Contusion of right breast, subsequent encounter; J44.9 Chronic obstructive pulmonary disease, unspecified; I50.9 Heart failure, unspecified; D50.0 Iron deficiency anemia secondary to blood loss (chronic); L89.312 Pressure ulcer of right buttock, stage 2; E88.09 Other disorders of plasma-protein metabolism, not elsewhere classified; J90 Pleural effusion, not elsewhere classified; I87.8 Other specified disorders of veins; N04.9 Nephrotic syndrome with unspecified morphologic changes; E03.9 Hypothyroidism, unspecified; I10 Essential (primary) hypertension; R80.9 Proteinuria, unspecified; E66.01 Morbid (severe) obesity due to excess calories; Z68.38 Body mass index [BMI] 38.0-38.9, adult; T14.8 Other injury of unspecified body region; E87.6 Hypokalemia; M14.672 Charcot's joint, left ankle and foot; G25.81 Restless legs syndrome; L30.9 Dermatitis, unspecified; M19.90 Unspecified osteoarthritis, unspecified site; J32.9 Chronic sinusitis, unspecified; Z99.81 Dependence on supplemental oxygen; Z90.49 Acquired absence of other specified parts of digestive tract; Z86.718 Personal history of other venous thrombosis and embolism; Z86.711 Personal history of pulmonary embolism; Z87.891 Personal history of nicotine dependence; Z79.4 Long term (current) use of insulin; Z79.01 Long term (current) use of anticoagulants
CPT/HCPCS: 70450; 71010; 71250; 80048; 80053; 80061; 80202; 81003; 82948; 83605; 83690; 83735; 84484; 85025; 85027; 85610; 85730; 87040; 87070; 87075; 87077; 87086; 87106; 87186; 87205; 87502; 87641; 93971; 94640; 94640 76; 94667; 94668; 94760; 94799; 99202; 99281; 99285; C1752; C1894; J0456; J0690; J0696; J1644; J1650; J1815; J1940; J1956; J2250; J2543; J3010; J3370; J3480; J7042; J7050; S0020

== ENCOUNTER 2017-02-15 09:30 | Inpatient (IN) | payer OTHER ==
[~2017-02-15] VITALS: Ht 170.2 cm; Wt 84.3 kg
[~2017-02-15 09:30] MED LIST changes: +BENADRYL25 MG PO; +COLACE100 MG PO; +DULCOLAX10 MG PR; +FLAGYL500 MG PO; +FLORASTOR250 MG PO; +LO-DOSE ASPIRIN81 M2 PO; +LOVENOX40 MG/0.4 SC; +NOVOLOG 10100 UNITS/ SC; +NYSTATIN100000 UN1 PO; +ROCEPHIN 2 GM VI2 GM IV; +VANCOCIN HCL125 MG PO; +VANCOMYCIN750 MG/151 IV; +ZOFRAN4 MG PO; +[UNRECOGNIZED DRUG - CODE] PO
[2017-02-15 10:10] LABS: BASOPHIL COUNT 0.1 K/uL (0-0.1); EOSINOPHIL (%) 3.2 % (0-5); EOSINOPHIL COUNT 0.3 K/uL (0-0.3); HEMATOCRIT 34.1 % (36.0-46.0); IMMATURE GRANULOCYTE (%) 0.4 % (0.0-0.7); INSTRUMENT ABS NEUTROPHIL CT 8.3 K/uL; LYMPHOCYTE COUNT 0.9 K/uL (1.0-2.8); MCH 28.4 PG (29.0-34.0); MCHC 30.8 G/DL (30.0-36.0); MCV 92.2 FL (83-99); MEAN PLAT.VOLUME 10.4 uM^3 (9.5-12.4); MONOCYTE (%) 7.8 % (3-12); MONOCYTE COUNT 0.8 K/uL (0-0.8); NEUTROPHIL (%) 79.4 % (45-76); NEUTROPHIL COUNT 8.3 K/uL (1.8-6.4); PLATELET COUNT 475 K/uL (156-360); RBC DIS.WIDTH-CV 19.9 % (11.8-14.6); RBC DIS.WIDTH-SD 67.2 % (39-53); WHITE BLOOD COUNT 10.5 K/uL (4.1-10.2)
[2017-02-15 10:20] LABS: CHLORIDE 112 mEq/L (99-109); POTASSIUM 3.3 mEq/L (3.7-5.4); SODIUM 146 mEq/L (136-147)
[2017-02-15 10:22] LABS: GLUCOSE 93 mg/dL (70-99)
[2017-02-15 10:24] LABS: ANION GAP 9 MEQ/L (2-14); TOTAL BILIRUBIN 0.3 mg/dL (0.0-1.0)
[2017-02-15 10:26] LABS: ALKALINE PHOSPHATASE 177 IU/L (3-129); GFR ESTIMATE (CALCULATED) > 59 mL/min/
[2017-02-15 10:27] LABS: UREA NITROGEN (BUN) 11 mg/dL (9-23)
[2017-02-15 10:31] LABS: TROP-I INTERPRETATION NEGATIVE; TROPONIN-I < 0.01 ng/mL (0.0-0.30)
[2017-02-15 11:17] LABS: ADD MIUA? YES; BILIRUBIN NEGATIVE; BLOOD LARGE; COLOR YELLOW ((YELLOW)); GLUCOSE (STRIP) NEGATIVE; KETONES 20; LEUKOCYTES LARGE; NITRITE NEGATIVE; PROTEIN (STRIP) 100; SPECIFIC GRAVITY 1.018 (1.000-1.030); UROBILINOGEN 0.2 MG/DL (0.2-1.0)
[2017-02-15 11:32] LABS: BACTERIA NONE SEEN /HPF; BUDDING YEAST 4+; EPITHELIAL CELLS NONE SEEN /HPF; HYALINE CASTS TNTC /LPF; MUCUS 1+ /LPF; RED BLOOD CELLS TNTC /HPF (0-5); UCUL ADDED? YES; URIC ACID CRYSTALS 2+ /HPF; WHITE BLOOD CELLS TNTC /HPF (0-5); WHITE BLOOD CELLS CLUMP MANY /HPF (0-5)
[2017-02-15] MEDS ORDERED: KLOR-CON M2020 MEQ PO (15:10)
[2017-02-15] MEDS ORDERED: MAXIPIME2 GM IV (15:13)
[2017-02-15] MEDS ORDERED: ELIQUIS5 MG PO (15:15)
[2017-02-15] MEDS ORDERED: DUONEB 2.5-0.5 M3 ML AEROSOL (15:17)
[2017-02-15] MEDS ORDERED: VANCOMYCIN HCL500 MG IV (15:20)
[2017-02-15] MEDS ORDERED: MULTI-VITAMIN1 EAC4 PO (16:05)
[2017-02-15 18:00] VITALS: BP 114/69
[2017-02-15 19:17] VITALS: BP 108/65
[2017-02-16 00:15] VITALS: BP 164/72
[2017-02-16 03:59] VITALS: BP 168/70
[2017-02-16 06:50] LABS: HEMATOCRIT 34.2 % (36.0-46.0); MCH 29.2 PG (29.0-34.0); MCHC 31.6 G/DL (30.0-36.0); MCV 92.4 FL (83-99); MEAN PLAT.VOLUME 10.8 uM^3 (9.5-12.4); NRBC (%) 0.2 /100 WBC (0-0); PLATELET COUNT 449 K/uL (156-360); RBC DIS.WIDTH-CV 19.7 % (11.8-14.6); RBC DIS.WIDTH-SD 67.4 % (39-53); WHITE BLOOD COUNT 10.6 K/uL (4.1-10.2)
[2017-02-16 07:05] VITALS: BP 167/65
[2017-02-16 07:24] LABS: ALKALINE PHOSPHATASE 165 IU/L (3-129); ANION GAP 9 MEQ/L (2-14); CHLORIDE 112 MEQ/L (99-109); GFR ESTIMATE (CALCULATED) > 59 mL/min/; GLUCOSE 65 mg/dL (70-99); POTASSIUM 3.9 MEQ/L (3.7-5.4); SAMPLE HEMOLYSIS CHECK 0; SAMPLE ICTERIC CHECK 0; SAMPLE LIPEMIA CHECK 0; SODIUM 149 MEQ/L (136-147); TOTAL BILIRUBIN 0.4 MG/DL (0.0-1.0); UREA NITROGEN (BUN) 10 mg/dL (9-23)
[2017-02-16 08:08] LABS: POINT-OF-CARE METER ID UU14162508
[2017-02-16 08:33] LABS: POINT-OF-CARE METER ID UU14162508
[2017-02-16 08:45] LABS: POINT-OF-CARE METER ID UU14162508
[2017-02-16 11:25] VITALS: BP 119/88
[2017-02-16 11:43] LABS: POINT-OF-CARE METER ID UU14162508
[2017-02-16 15:55] VITALS: BP 148/82
[2017-02-16 20:07] VITALS: BP 140/73
[2017-02-16 22:01] LABS: POINT-OF-CARE METER ID UU14162508
[2017-02-17 04:07] VITALS: BP 146/67
[2017-02-17 07:12] LABS: BASOPHIL COUNT 0.1 K/uL (0-0.1); EOSINOPHIL (%) 6.5 % (0-5); EOSINOPHIL COUNT 0.6 K/uL (0-0.3); HEMATOCRIT 33.1 % (36.0-46.0); IMMATURE GRANULOCYTE (%) 0.4 % (0.0-0.7); INSTRUMENT ABS NEUTROPHIL CT 6.9 K/uL; MCH 28.7 PG (29.0-34.0); MCHC 31.4 G/DL (30.0-36.0); MCV 91.4 FL (83-99); MEAN PLAT.VOLUME 11.2 uM^3 (9.5-12.4); MONOCYTE (%) 9.9 % (3-12); NEUTROPHIL (%) 71.8 % (45-76); NEUTROPHIL COUNT 6.9 K/uL (1.8-6.4); PLATELET COUNT 409 K/uL (156-360); RBC DIS.WIDTH-CV 19.9 % (11.8-14.6); RBC DIS.WIDTH-SD 67.1 % (39-53); RED BLOOD COUNT 3.62 M/uL (3.80-5.20); WHITE BLOOD COUNT 9.6 K/uL (4.1-10.2)
[2017-02-17 07:42] LABS: ANION GAP 8 MEQ/L (2-14); C-REACTIVE PROTEIN 19.3 MG/L (0-10); CHLORIDE 106 MEQ/L (99-109); GFR ESTIMATE (CALCULATED) > 59 mL/min/; SAMPLE HEMOLYSIS CHECK 0; SAMPLE ICTERIC CHECK 0; SAMPLE LIPEMIA CHECK 0; UREA NITROGEN (BUN) 9 mg/dL (9-23)
[2017-02-17 07:44] LABS: GLUCOSE 108 mg/dL (70-99); POTASSIUM 3.1 MEQ/L (3.7-5.4); SODIUM 141 MEQ/L (136-147)
[2017-02-17 08:30] VITALS: BP 104/72
[2017-02-17 10:11] LABS: ERTH.SED.RATE 32 MM/HR (0-30)
[2017-02-17 12:29] LABS: POINT-OF-CARE METER ID UU14162508
[2017-02-17 12:35] VITALS: BP 122/72
[2017-02-17 17:00] VITALS: BP 135/78
[2017-02-17 17:33] LABS: POINT-OF-CARE METER ID UU14162508
[2017-02-17 19:32] VITALS: BP 133/61
[2017-02-18 00:24] VITALS: BP 115/66
[2017-02-18 03:20] VITALS: BP 133/85
[2017-02-18 07:18] LABS: BASOPHIL COUNT 0.1 K/uL (0-0.1); EOSINOPHIL (%) 6.1 % (0-5); EOSINOPHIL COUNT 0.4 K/uL (0-0.3); HEMATOCRIT 30.6 % (36.0-46.0); IMMATURE GRANULOCYTE (%) 0.4 % (0.0-0.7); INSTRUMENT ABS NEUTROPHIL CT 5.2 K/uL; LYMPHOCYTE COUNT 0.8 K/uL (1.0-2.8); MCH 29.8 PG (29.0-34.0); MCV 90.3 FL (83-99); MONOCYTE (%) 9.6 % (3-12); MONOCYTE COUNT 0.7 K/uL (0-0.8); NEUTROPHIL (%) 71.9 % (45-76); NEUTROPHIL COUNT 5.2 K/uL (1.8-6.4); PLATELET COUNT 390 K/uL (156-360); RBC DIS.WIDTH-CV 19.9 % (11.8-14.6); RBC DIS.WIDTH-SD 65.6 % (39-53); RED BLOOD COUNT 3.39 M/uL (3.80-5.20); WHITE BLOOD COUNT 7.2 K/uL (4.1-10.2)
[2017-02-18 07:22] VITALS: BP 126/62
[2017-02-18 07:49] LABS: ANION GAP 6 MEQ/L (2-14); CHLORIDE 107 MEQ/L (99-109); GFR ESTIMATE (CALCULATED) > 59 mL/min/; GLUCOSE 102 mg/dL (70-99); POTASSIUM 2.7 MEQ/L (3.7-5.4); SAMPLE HEMOLYSIS CHECK 0; SAMPLE ICTERIC CHECK 0; SAMPLE LIPEMIA CHECK 0; SODIUM 139 MEQ/L (136-147); UREA NITROGEN (BUN) 8 mg/dL (9-23)
[2017-02-18 12:41] VITALS: BP 130/58
[2017-02-18 20:00] VITALS: BP 138/70
[2017-02-18 21:55] LABS: POINT-OF-CARE METER ID UU14162508
[2017-02-18 23:38] VITALS: BP 142/64
[2017-02-19 03:33] LABS: POINT-OF-CARE METER ID UU14162508
[2017-02-19 03:40] VITALS: BP 150/68
[2017-02-19 07:41] LABS: ANION GAP 6 MEQ/L (2-14); CHLORIDE 110 MEQ/L (99-109); GFR ESTIMATE (CALCULATED) > 59 mL/min/; GLUCOSE 117 mg/dL (70-99); SAMPLE HEMOLYSIS CHECK 1; SAMPLE ICTERIC CHECK 0; SAMPLE LIPEMIA CHECK 0; SODIUM 138 MEQ/L (136-147); UREA NITROGEN (BUN) 8 mg/dL (9-23)
[2017-02-19 07:42] LABS: POTASSIUM 4.3 MEQ/L (3.7-5.4)
[2017-02-19 08:27] VITALS: BP 120/68
[2017-02-19 12:12] LABS: POINT-OF-CARE METER ID UU14162508
[2017-02-19 16:30] VITALS: BP 120/72
[2017-02-19 21:55] LABS: POINT-OF-CARE METER ID UU14162508
[2017-02-19 23:04] VITALS: BP 129/72
[2017-02-20 06:51] LABS: POINT-OF-CARE METER ID UU14162508
[2017-02-20 07:30] VITALS: BP 138/73
[2017-02-20 08:06] LABS: ANION GAP 8 MEQ/L (2-14); CHLORIDE 110 MEQ/L (99-109); GFR ESTIMATE (CALCULATED) > 59 mL/min/; GLUCOSE 93 mg/dL (70-99); POTASSIUM 3.4 MEQ/L (3.7-5.4); SAMPLE HEMOLYSIS CHECK 0; SAMPLE ICTERIC CHECK 0; SAMPLE LIPEMIA CHECK 0; SODIUM 141 MEQ/L (136-147); UREA NITROGEN (BUN) 7 mg/dL (9-23)
[2017-02-20 16:30] VITALS: BP 137/82
[2017-02-20 22:23] LABS: POINT-OF-CARE METER ID UU14162508
[2017-02-20 23:36] VITALS: BP 133/65
[2017-02-21 07:24] LABS: POINT-OF-CARE METER ID UU14162508
[2017-02-21 07:29] VITALS: BP 134/60
[2017-02-21 08:02] LABS: POINT-OF-CARE METER ID UU14162508
[2017-02-21 08:44] LABS: ANION GAP 7 MEQ/L (2-14); CHLORIDE 111 MEQ/L (99-109); GFR ESTIMATE (CALCULATED) > 59 mL/min/; GLUCOSE 84 mg/dL (70-99); POTASSIUM 3.8 MEQ/L (3.7-5.4); SAMPLE HEMOLYSIS CHECK 0; SAMPLE ICTERIC CHECK 0; SAMPLE LIPEMIA CHECK 0; SODIUM 143 MEQ/L (136-147); UREA NITROGEN (BUN) 5 mg/dL (9-23)
[2017-02-21 11:50] VITALS: BP 140/58
[2017-02-21 23:57] VITALS: BP 144/78
[2017-02-22 03:38] LABS: POINT-OF-CARE METER ID UU14162508
[2017-02-22 06:50] LABS: POINT-OF-CARE METER ID UU14162508
[2017-02-22 07:59] VITALS: BP 140/96
[2017-02-22 15:43] VITALS: BP 140/60
[2017-02-22 17:06] LABS: POINT-OF-CARE METER ID UU14162508
[2017-02-22 19:40] VITALS: BP 130/80
[2017-02-23 00:22] VITALS: BP 120/66
[2017-02-23 07:30] LABS: HEMATOCRIT 34.9 % (36.0-46.0); MCH 28.5 PG (29.0-34.0); MCHC 31.8 G/DL (30.0-36.0); MCV 89.7 FL (83-99); MEAN PLAT.VOLUME 10.2 uM^3 (9.5-12.4); PLATELET COUNT 450 K/uL (156-360); RBC DIS.WIDTH-CV 19.9 % (11.8-14.6); RBC DIS.WIDTH-SD 65.9 % (39-53); RED BLOOD COUNT 3.89 M/uL (3.80-5.20); WHITE BLOOD COUNT 9.1 K/uL (4.1-10.2)
[2017-02-23 08:02] LABS: ANION GAP 8 MEQ/L (2-14); CHLORIDE 114 MEQ/L (99-109); GFR ESTIMATE (CALCULATED) > 59 mL/min/; GLUCOSE 83 mg/dL (70-99); POTASSIUM 3.6 MEQ/L (3.7-5.4); SAMPLE HEMOLYSIS CHECK 0; SAMPLE ICTERIC CHECK 0; SAMPLE LIPEMIA CHECK 0; SODIUM 146 MEQ/L (136-147); UREA NITROGEN (BUN) 5 mg/dL (9-23)
[2017-02-23 08:29] VITALS: BP 128/55
[2017-02-23] MEDS ORDERED: MIRTAZAPINE15 MG PO (10:22)
[2017-02-23] MEDS ORDERED: ZOSYN 3.3753.375 GM IV (10:28)
[2017-02-23] MEDS ORDERED: VANCOCIN HCL125 MG PO (10:29)
[2017-02-24] MEDS ORDERED: VANCOCIN HCL125 MG PO (19:37)
[2017-02-24] MEDS ORDERED: VITAMIN D-32000 UNI2 PO (19:38)
[2017-02-24] MEDS ORDERED: VITAMIN D22000 UNIT PO (19:39)
[2017-02-24] MEDS ORDERED: ZOSYN 3.3753.375 GM IV (19:41)
== END 2017-02-23 12:40 | DRG 70 ==
LOC: EME 09:30 → EDOF 14:06 → 2EAST 14:06
PROVIDERS: Emergency Medicine; Family Medicine; Hospitalist; Internal Medicine Infectious Disease; Student in an Organized Health Care Education/Training Program
DX: G93.41 Metabolic encephalopathy (principal); G92 Toxic encephalopathy; T36.1X5A Adverse effect of cephalosporins and other beta-lactam antibiotics, initial encounter; T40.605A Adverse effect of unspecified narcotics, initial encounter; T81.4XXA Infection following a procedure, initial encounter; L89.153 Pressure ulcer of sacral region, stage 3; L89.152 Pressure ulcer of sacral region, stage 2; L89.322 Pressure ulcer of left buttock, stage 2; L89.312 Pressure ulcer of right buttock, stage 2; E11.649 Type 2 diabetes mellitus with hypoglycemia without coma; E87.0 Hyperosmolality and hypernatremia; J44.9 Chronic obstructive pulmonary disease, unspecified; E87.6 Hypokalemia; R63.0 Anorexia; I10 Essential (primary) hypertension; E03.9 Hypothyroidism, unspecified; E78.5 Hyperlipidemia, unspecified; D64.9 Anemia, unspecified; G25.81 Restless legs syndrome; G25.0 Essential tremor; F32.9 Major depressive disorder, single episode, unspecified; Z96.642 Presence of left artificial hip joint; B96.5 Pseudomonas (aeruginosa) (mallei) (pseudomallei) as the cause of diseases classified elsewhere; Z16.24 Resistance to multiple antibiotics; Z96.653 Presence of artificial knee joint, bilateral; E66.01 Morbid (severe) obesity due to excess calories; Z99.81 Dependence on supplemental oxygen; Z68.29 Body mass index [BMI] 29.0-29.9, adult; Z86.711 Personal history of pulmonary embolism; Z86.718 Personal history of other venous thrombosis and embolism; Z79.01 Long term (current) use of anticoagulants; Z87.891 Personal history of nicotine dependence
CPT/HCPCS: 70450; 71010; 73552; 74176; 80048; 80053; 81003; 82948; 83605; 83880; 84484; 85025; 85027; 85651; 86140; 87040; 87086 GA; 87106; 92526 GN; 92610 GN; 93005; 94640; 94640 76; 94799; 95819; 99202; 99281; 99285; J1450; J1815; J1940; J2543; J3480; J7040; J7050; J7070; Q0167

== ENCOUNTER 2017-02-24 15:59 | Inpatient (IN) | payer OTHER ==
[~2017-02-24] VITALS: Ht 160 cm; Wt 77.5 kg
[~2017-02-24 15:59] MED LIST changes: +MAXIPIME2 GM IV; +MIRTAZAPINE15 MG PO; +MULTI-VITAMIN1 EAC4 PO; +VANCOMYCIN HCL500 MG IV; +ZOSYN 3.3753.375 GM IV
[2017-02-24 17:25] LABS: BASE EXCESS -4.2 mEq/L (-3 to +3); CARBOXY HGB 1.6 % (0-5); COMMENTS - BLOOD GASES C+A-N/A; DEVICE NASAL CANNULA; O2 FLOW 4 L/MIN; PCO2 38 mm Hg (35-45); PO2 79 mm Hg (80-100); SITE LR; pH 7.35 (7.35-7.45)
[2017-02-24 17:26] LABS: TOTAL RESP RATE 22 resp/min
[2017-02-24 17:35] LABS: BASOPHIL COUNT 0.1 K/uL (0-0.1); EOSINOPHIL (%) 1.8 % (0-5); EOSINOPHIL COUNT 0.2 K/uL (0-0.3); HEMATOCRIT 35.6 % (36.0-46.0); IMMATURE GRANULOCYTE (%) 0.4 % (0.0-0.7); LYMPHOCYTE COUNT 1.3 K/uL (1.0-2.8); MCH 28.3 PG (29.0-34.0); MCHC 31.7 G/DL (30.0-36.0); MCV 89.2 FL (83-99); MEAN PLAT.VOLUME 10.3 uM^3 (9.5-12.4); MONOCYTE (%) 9.7 % (3-12); MONOCYTE COUNT 0.8 K/uL (0-0.8); NEUTROPHIL (%) 71.8 % (45-76); PLATELET COUNT 475 K/uL (156-360); RBC DIS.WIDTH-CV 19.9 % (11.8-14.6); RBC DIS.WIDTH-SD 65.6 % (39-53); RED BLOOD COUNT 3.99 M/uL (3.80-5.20); WHITE BLOOD COUNT 8.3 K/uL (4.1-10.2)
[2017-02-24 17:44] LABS: CHLORIDE 115 mEq/L (99-109); POTASSIUM 3.7 mEq/L (3.7-5.4); SODIUM 143 mEq/L (136-147)
[2017-02-24 17:46] LABS: GLUCOSE 101 mg/dL (70-99)
[2017-02-24 17:47] LABS: ANION GAP 7 MEQ/L (2-14)
[2017-02-24 17:50] LABS: GFR ESTIMATE (CALCULATED) > 59 mL/min/; UREA NITROGEN (BUN) 6 mg/dL (9-23)
[2017-02-24 17:55] LABS: TROP-I INTERPRETATION NEGATIVE; TROPONIN-I 0.25 ng/mL (0.0-0.30)
[2017-02-24] MEDS ORDERED: VANCOCIN HCL125 MG PO (19:37)
[2017-02-24] MEDS ORDERED: VITAMIN D-32000 UNI2 PO (19:38)
[2017-02-24] MEDS ORDERED: VITAMIN D22000 UNIT PO (19:39)
[2017-02-24] MEDS ORDERED: ZOSYN 3.3753.375 GM IV (19:41)
[2017-02-24 22:50] VITALS: BP 119/71
[2017-02-25 01:49] LABS: ADD MIUA? YES; BILIRUBIN NEGATIVE; BLOOD SMALL; COLOR YELLOW ((YELLOW)); GLUCOSE (STRIP) NEGATIVE; KETONES NEGATIVE; LEUKOCYTES LARGE; NITRITE NEGATIVE; PROTEIN (STRIP) NEGATIVE; SPECIFIC GRAVITY 1.005 (1.000-1.030); UROBILINOGEN 0.2 MG/DL (0.2-1.0)
[2017-02-25 01:55] LABS: BACTERIA 1+ /HPF; BUDDING YEAST 2+; EPITHELIAL CELLS RARE /HPF; MUCUS TRACE /LPF; RED BLOOD CELLS 15-20 /HPF (0-5); UCUL ADDED? NO; WHITE BLOOD CELLS 30-40 /HPF (0-5)
[2017-02-25 04:36] VITALS: BP 122/66
[2017-02-25 06:02] LABS: METH RESISTANT S AUREUS PCR POSITIVE (NEGATIVE)
[2017-02-25 06:05] LABS: PROBE CHECK PASS
[2017-02-25 08:20] VITALS: BP 120/78
[2017-02-25 10:15] LABS: HEMATOCRIT 35.7 % (36.0-46.0); MCH 28.3 PG (29.0-34.0); MCHC 30.5 G/DL (30.0-36.0); MCV 92.7 FL (83-99); MEAN PLAT.VOLUME 10.2 uM^3 (9.5-12.4); PLATELET COUNT 461 K/uL (156-360); RBC DIS.WIDTH-SD 68.3 % (39-53); RED BLOOD COUNT 3.85 M/uL (3.80-5.20); WHITE BLOOD COUNT 8.5 K/uL (4.1-10.2)
[2017-02-25 11:02] LABS: ANION GAP 8 MEQ/L (2-14); CHLORIDE 115 MEQ/L (99-109); GFR ESTIMATE (CALCULATED) > 59 mL/min/; GLUCOSE 91 mg/dL (70-99); POTASSIUM 3.1 MEQ/L (3.7-5.4); SAMPLE HEMOLYSIS CHECK 0; SAMPLE ICTERIC CHECK 0; SAMPLE LIPEMIA CHECK 0; SODIUM 148 MEQ/L (136-147); UREA NITROGEN (BUN) 5 mg/dL (9-23)
[2017-02-25 12:15] LABS: MAGNESIUM 1.5 mg/dl (1.3-2.7)
[2017-02-25 12:51] LABS: TROP-I INTERPRETATION NEGATIVE; TROPONIN-I 0.18 ng/mL (0.0-0.30)
[2017-02-25 16:15] VITALS: BP 124/64
[2017-02-25 19:41] VITALS: BP 114/65
[2017-02-25 23:02] VITALS: BP 121/70
[2017-02-25 23:23] LABS: BASE EXCESS -4.1 mEq/L (-3 to +3); BICARBONATE 23.9 mEq/L (22-26); CARBOXY HGB 1.8 % (0-5); COMMENTS - BLOOD GASES C+A+; DEVICE NC; METHEMOGLOBIN 1.7 % (0-1.5); O2 FLOW 1 L/MIN; PCO2 57 mm Hg (35-45); PO2 53 mm Hg (80-100); SITE RR
[2017-02-25 23:24] LABS: pH 7.23 (7.35-7.45)
[2017-02-25 23:45] VITALS: BP 128/76; BP 128/86
[2017-02-26] VITALS (24 sets, daily range): BP systolic 85–138; BP diastolic 42–92
[2017-02-26 00:14] LABS: POINT-OF-CARE METER ID UU13113803; POINT-OF-CARE USER ID ENVSME70
[2017-02-26 00:44] LABS: BASE EXCESS -4.9 mEq/L (-3 to +3); BICARBONATE 21.1 mEq/L (22-26); COMMENTS - BLOOD GASES C+A+; DEVICE NIV; FI02 30 %; METHEMOGLOBIN 1.8 % (0-1.5); MODE SPONT; PCO2 42 mm Hg (35-45); PEEP 5 CM/H20; PO2 75 mm Hg (80-100); PRES. SUPPORT 10 CM/H2O; SITE RR; TOTAL RESP RATE 25 resp/min; pH 7.31 (7.35-7.45)
[2017-02-26 01:17] LABS: METH RESISTANT S AUREUS PCR POSITIVE (NEGATIVE)
[2017-02-26 01:20] LABS: PROBE CHECK PASS
[2017-02-26 01:28] LABS: CHLORIDE 112 mEq/L (99-109); SODIUM 146 mEq/L (136-147)
[2017-02-26 01:29] LABS: MAGNESIUM 1.8 mg/dL (1.3-2.7)
[2017-02-26 01:31] LABS: GLUCOSE 105 mg/dL (70-99)
[2017-02-26 01:32] LABS: ANION GAP 9 MEQ/L (2-14)
[2017-02-26 01:33] LABS: TOTAL BILIRUBIN 0.3 mg/dL (0.0-1.0); TROP-I INTERPRETATION NEGATIVE; TROPONIN-I 0.15 ng/mL (0.0-0.30)
[2017-02-26 01:34] LABS: ALKALINE PHOSPHATASE 280 IU/L (3-129)
[2017-02-26 01:35] LABS: GFR ESTIMATE (CALCULATED) > 59 mL/min/
[2017-02-26 01:36] LABS: DIRECT BILIRUBIN 0.2 mg/dL (0.0-0.3)
[2017-02-26 01:43] LABS: POTASSIUM 3.9 mEq/L (3.7-5.4)
[2017-02-26 02:22] LABS: UREA NITROGEN (BUN) 6 mg/dL (9-23)
[2017-02-26 03:14] LABS: ADD MIUA? YES; BILIRUBIN NEGATIVE; BLOOD MODERATE; COLOR AMBER ((YELLOW)); GLUCOSE (STRIP) NEGATIVE; KETONES 5; LEUKOCYTES LARGE; NITRITE NEGATIVE; PROTEIN (STRIP) 100; SPECIFIC GRAVITY 1.016 (1.000-1.030); UROBILINOGEN 0.2 MG/DL (0.2-1.0)
[2017-02-26 03:46] LABS: RED BLOOD CELLS TNTC /HPF (0-5); UCUL ADDED? YES; WHITE BLOOD CELLS TNTC /HPF (0-5)
[2017-02-26 06:33] LABS: HEMATOCRIT 38.6 % (36.0-46.0); MCH 27.9 PG (29.0-34.0); MCHC 29.8 G/DL (30.0-36.0); MCV 93.7 FL (83-99); MEAN PLAT.VOLUME 9.8 uM^3 (9.5-12.4); PLATELET COUNT 539 K/uL (156-360); RBC DIS.WIDTH-CV 19.8 % (11.8-14.6); RBC DIS.WIDTH-SD 68.8 % (39-53); RED BLOOD COUNT 4.12 M/uL (3.80-5.20); WHITE BLOOD COUNT 7.2 K/uL (4.1-10.2)
[2017-02-26 07:03] LABS: ALKALINE PHOSPHATASE 246 IU/L (3-129); ANION GAP 10 MEQ/L (2-14); CHLORIDE 112 MEQ/L (99-109); GFR ESTIMATE (CALCULATED) 58 mL/min/; GLUCOSE 125 mg/dL (70-99); POTASSIUM 3.8 MEQ/L (3.7-5.4); SAMPLE HEMOLYSIS CHECK 0; SAMPLE ICTERIC CHECK 0; SAMPLE LIPEMIA CHECK 0; SODIUM 147 MEQ/L (136-147); TOTAL BILIRUBIN 0.3 MG/DL (0.0-1.0); UREA NITROGEN (BUN) 6 mg/dL (9-23)
[2017-02-26 07:16] LABS: C DIFF TOXIN NEGATIVE (NEGATIVE)
[2017-02-26 07:17] LABS: PROBE CHECK PASS; SPECIMEN PROCESSING CONTROL PASS
[2017-02-26 13:26] LABS: POINT-OF-CARE METER ID UU13113748
[2017-02-26 17:57] LABS: POINT-OF-CARE METER ID UU13113748
[2017-02-27] VITALS (19 sets, daily range): BP systolic 86–129; BP diastolic 50–91
[2017-02-27 06:04] LABS: URIC ACID 6.1 mg/dL (3.1-9.2)
[2017-02-27 07:10] LABS: ANION GAP 13 MEQ/L (2-14); CHLORIDE 111 MEQ/L (99-109); GFR ESTIMATE (CALCULATED) > 59 mL/min/; GLUCOSE 109 mg/dL (70-99); POTASSIUM 3.4 MEQ/L (3.7-5.4); SODIUM 145 MEQ/L (136-147); UREA NITROGEN (BUN) 7 mg/dL (9-23)
[2017-02-27 07:45] LABS: EOSINOPHIL (%) 0.1 % (0-5); IMMATURE GRANULOCYTE (%) 0.4 % (0.0-0.7); INSTRUMENT ABS NEUTROPHIL CT 5.4 K/uL; LYMPHOCYTE COUNT 1.1 K/uL (1.0-2.8); MCH 29.1 PG (29.0-34.0); MCHC 31.9 G/DL (30.0-36.0); MCV 91.2 FL (83-99); MEAN PLAT.VOLUME 9.4 uM^3 (9.5-12.4); MONOCYTE (%) 10.8 % (3-12); MONOCYTE COUNT 0.8 K/uL (0-0.8); NEUTROPHIL (%) 73.4 % (45-76); NEUTROPHIL COUNT 5.4 K/uL (1.8-6.4); PLATELET COUNT 454 K/uL (156-360); RBC DIS.WIDTH-CV 19.3 % (11.8-14.6); RBC DIS.WIDTH-SD 65.7 % (39-53); WHITE BLOOD COUNT 7.4 K/uL (4.1-10.2)
[2017-02-28] VITALS (14 sets, daily range): BP systolic 84–149; BP diastolic 45–76
[2017-02-28 05:03] LABS: EOSINOPHIL (%) 0 % (0-5); HEMATOCRIT 33.6 % (36.0-46.0); IMMATURE GRANULOCYTE (%) 0.8 % (0.0-0.7); INSTRUMENT ABS NEUTROPHIL CT 3.8 K/uL; LYMPHOCYTE COUNT 0.7 K/uL (1.0-2.8); MCH 27.7 PG (29.0-34.0); MCHC 30.1 G/DL (30.0-36.0); MCV 92.3 FL (83-99); MEAN PLAT.VOLUME 9.1 uM^3 (9.5-12.4); MONOCYTE (%) 9.2 % (3-12); MONOCYTE COUNT 0.5 K/uL (0-0.8); NEUTROPHIL (%) 75.4 % (45-76); NEUTROPHIL COUNT 3.8 K/uL (1.8-6.4); PLATELET COUNT 384 K/uL (156-360); RBC DIS.WIDTH-CV 19.3 % (11.8-14.6); RBC DIS.WIDTH-SD 65.7 % (39-53); RED BLOOD COUNT 3.64 M/uL (3.80-5.20)
[2017-02-28 05:07] LABS: CHLORIDE 112 mEq/L (99-109); POTASSIUM 3.3 mEq/L (3.7-5.4); SODIUM 143 mEq/L (136-147)
[2017-02-28 05:09] LABS: GLUCOSE 110 mg/dL (70-99)
[2017-02-28 05:11] LABS: TOTAL BILIRUBIN 0.1 mg/dL (0.0-1.0)
[2017-02-28 05:12] LABS: ALKALINE PHOSPHATASE 222 IU/L (3-129)
[2017-02-28 05:13] LABS: GFR ESTIMATE (CALCULATED) > 59 mL/min/
[2017-02-28 05:14] LABS: UREA NITROGEN (BUN) 9 mg/dL (9-23)
[2017-02-28 05:33] LABS: ANION GAP 9 MEQ/L (2-14)
[2017-03-01 02:58] VITALS: BP 109/66
[2017-03-01 07:52] LABS: ANION GAP 9 MEQ/L (2-14); CHLORIDE 109 MEQ/L (99-109); GFR ESTIMATE (CALCULATED) 58 mL/min/; GLUCOSE 142 mg/dL (70-99); POTASSIUM 3.6 MEQ/L (3.7-5.4); SAMPLE HEMOLYSIS CHECK 0; SAMPLE ICTERIC CHECK 0; SAMPLE LIPEMIA CHECK 0; SODIUM 143 MEQ/L (136-147); UREA NITROGEN (BUN) 10 mg/dL (9-23)
[2017-03-01 09:16] VITALS: BP 131/76
[2017-03-01 12:00] VITALS: BP 128/69
[2017-03-01 16:02] VITALS: BP 119/71
[2017-03-01 19:45] VITALS: BP 115/65
[2017-03-02 00:04] VITALS: BP 113/60
[2017-03-02 03:40] VITALS: BP 123/66
[2017-03-02 06:47] LABS: POINT-OF-CARE METER ID UU14162508
[2017-03-02 07:32] LABS: ANION GAP 10 MEQ/L (2-14); CHLORIDE 110 MEQ/L (99-109); GFR ESTIMATE (CALCULATED) 58 mL/min/; GLUCOSE 129 mg/dL (70-99); POTASSIUM 3.7 MEQ/L (3.7-5.4); SAMPLE HEMOLYSIS CHECK 0; SAMPLE ICTERIC CHECK 0; SAMPLE LIPEMIA CHECK 0; SODIUM 143 MEQ/L (136-147); UREA NITROGEN (BUN) 11 mg/dL (9-23)
[2017-03-02 09:00] VITALS: BP 147/83
[2017-03-02 16:00] VITALS: BP 142/76
[2017-03-02 19:59] VITALS: BP 131/94
[2017-03-02 21:18] LABS: POINT-OF-CARE METER ID UU14162508
[2017-03-02 23:07] VITALS: BP 142/84
[2017-03-03 03:28] VITALS: BP 138/78
[2017-03-03 07:20] VITALS: BP 140/90
[2017-03-03 07:31] LABS: ANION GAP 9 MEQ/L (2-14); CHLORIDE 112 MEQ/L (99-109); GFR ESTIMATE (CALCULATED) 58 mL/min/; GLUCOSE 120 mg/dL (70-99); POTASSIUM 4.1 MEQ/L (3.7-5.4); SAMPLE HEMOLYSIS CHECK 1; SAMPLE ICTERIC CHECK 0; SAMPLE LIPEMIA CHECK 0; SODIUM 142 MEQ/L (136-147); UREA NITROGEN (BUN) 11 mg/dL (9-23)
[2017-03-03 11:21] VITALS: BP 142/88
[2017-03-03 11:21] LABS: POINT-OF-CARE METER ID UU14162508
[2017-03-03 16:40] VITALS: BP 140/82
[2017-03-04 00:26] VITALS: BP 148/87
[2017-03-04 07:14] LABS: EOSINOPHIL (%) 0.1 % (0-5); IMMATURE GRANULOCYTE (%) 2.6 % (0.0-0.7); IMMATURE GRANULOCYTE COUNT 0.3 K/uL; INSTRUMENT ABS NEUTROPHIL CT 10.3 K/uL; LYMPHOCYTE COUNT 0.5 K/uL (1.0-2.8); MCH 28.7 PG (29.0-34.0); MCHC 30.3 G/DL (30.0-36.0); MCV 94.9 FL (83-99); MEAN PLAT.VOLUME 9.9 uM^3 (9.5-12.4); MONOCYTE COUNT 0.6 K/uL (0-0.8); NEUTROPHIL COUNT 10.3 K/uL (1.8-6.4); NRBC (%) 2.4 /100 WBC (0-0); PLATELET COUNT 364 K/uL (156-360); RBC DIS.WIDTH-CV 19.9 % (11.8-14.6); RBC DIS.WIDTH-SD 66.4 % (39-53); RED BLOOD COUNT 3.69 M/uL (3.80-5.20); WHITE BLOOD COUNT 11.8 K/uL (4.1-10.2)
[2017-03-04 07:41] LABS: ANION GAP 8 MEQ/L (2-14); CHLORIDE 111 MEQ/L (99-109); GFR ESTIMATE (CALCULATED) 52 mL/min/; GLUCOSE 132 mg/dL (70-99); POTASSIUM 4.3 MEQ/L (3.7-5.4); SAMPLE HEMOLYSIS CHECK 0; SAMPLE ICTERIC CHECK 0; SAMPLE LIPEMIA CHECK 0; SODIUM 144 MEQ/L (136-147); UREA NITROGEN (BUN) 11 mg/dL (9-23)
[2017-03-04 07:58] VITALS: BP 159/88
[2017-03-04 15:26] VITALS: BP 165/100
[2017-03-04 21:48] LABS: POINT-OF-CARE METER ID UU14162508
[2017-03-04 23:43] VITALS: BP 128/90
[2017-03-05 08:45] VITALS: BP 150/92
[2017-03-05 12:10] LABS: POINT-OF-CARE METER ID UU14162508
[2017-03-05 15:30] VITALS: BP 121/86
[2017-03-05 16:53] LABS: POINT-OF-CARE METER ID UU14162508
[2017-03-05 23:10] VITALS: BP 144/83
[2017-03-06] VITALS (8 sets, daily range): BP systolic 128–157; BP diastolic 80–98
[2017-03-06 06:37] LABS: HEMATOCRIT 38.4 % (36.0-46.0); MCH 28.2 PG (29.0-34.0); MCHC 29.4 G/DL (30.0-36.0); MCV 95.8 FL (83-99); MEAN PLAT.VOLUME 9.8 uM^3 (9.5-12.4); NRBC (%) 7.9 /100 WBC (0-0); PLATELET COUNT 309 K/uL (156-360); RBC DIS.WIDTH-CV 20.3 % (11.8-14.6); RBC DIS.WIDTH-SD 66.9 % (39-53); RED BLOOD COUNT 4.01 M/uL (3.80-5.20); WHITE BLOOD COUNT 11.9 K/uL (4.1-10.2)
[2017-03-06 07:08] LABS: ANION GAP 10 MEQ/L (2-14); CHLORIDE 110 MEQ/L (99-109); GFR ESTIMATE (CALCULATED) 58 mL/min/; GLUCOSE 148 mg/dL (70-99); POTASSIUM 4.4 MEQ/L (3.7-5.4); SAMPLE HEMOLYSIS CHECK 0; SAMPLE ICTERIC CHECK 0; SAMPLE LIPEMIA CHECK 0; SODIUM 145 MEQ/L (136-147); UREA NITROGEN (BUN) 12 mg/dL (9-23); VANCOMYCIN, TROUGH 28.5 MCG/ML (10-20)
[2017-03-06 10:38] LABS: BASE EXCESS -1.9 mEq/L (-3 to +3); CARBOXY HGB 2.5 % (0-5); METHEMOGLOBIN 1.7 % (0-1.5); PO2 64 mm Hg (80-100)
[2017-03-06 10:41] LABS: BICARBONATE 26.8 mEq/L (22-26); COMMENTS - BLOOD GASES A+C+; DEVICE NC; O2 FLOW 2 L/MIN; PCO2 64 mm Hg (35-45); SITE RR; pH 7.23 (7.35-7.45)
[2017-03-06 10:42] LABS: TOTAL RESP RATE 14 resp/min
[2017-03-06 11:54] LABS: POINT-OF-CARE METER ID UU14162508
[2017-03-06 14:39] LABS: BASE EXCESS -1.4 mEq/L (-3 to +3); BICARBONATE 26.8 mEq/L (22-26); CARBOXY HGB 2.3 % (0-5); COMMENTS - BLOOD GASES +C; DEVICE PB840; FI02 30 %; METHEMOGLOBIN 1.9 % (0-1.5); PCO2 61 mm Hg (35-45); PO2 68 mm Hg (80-100); SITE RR +A
[2017-03-06 14:40] LABS: CONTINUOUS POS AIRWAY PRESSURE 5 cm H2O; MODE NIV; PRES. SUPPORT 15 CM/H2O; TOTAL RESP RATE 19 resp/min; pH 7.25 (7.35-7.45)
[2017-03-06 16:16] LABS: HEMATOCRIT 37.1 % (36.0-46.0); MCH 28.5 PG (29.0-34.0); MCHC 29.6 G/DL (30.0-36.0); MCV 96.1 FL (83-99); MEAN PLAT.VOLUME 9.4 uM^3 (9.5-12.4); NRBC (%) 6.2 /100 WBC (0-0); PLATELET COUNT 293 K/uL (156-360); RBC DIS.WIDTH-CV 20.4 % (11.8-14.6); RBC DIS.WIDTH-SD 67.5 % (39-53); RED BLOOD COUNT 3.86 M/uL (3.80-5.20)
[2017-03-06 16:35] LABS: ANION GAP 8 MEQ/L (2-14); CHLORIDE 111 MEQ/L (99-109); GFR ESTIMATE (CALCULATED) 58 mL/min/; GLUCOSE 147 mg/dL (70-99); MAGNESIUM 1.8 mg/dl (1.3-2.7); POTASSIUM 4.3 MEQ/L (3.7-5.4); SAMPLE HEMOLYSIS CHECK 0; SAMPLE ICTERIC CHECK 0; SAMPLE LIPEMIA CHECK 0; SODIUM 145 MEQ/L (136-147); UREA NITROGEN (BUN) 11 mg/dL (9-23)
[2017-03-06 16:47] LABS: ANISOCYTOSIS 1+; EOSINOPHIL (%) 0 % (0-5); IMMATURE GRANULOCYTE (%) 2.2 % (0.0-0.7); IMMATURE GRANULOCYTE COUNT 0.3 K/uL; LYMPHOCYTE COUNT 0.3 K/uL (1.0-2.8); MONOCYTE (%) 3.7 % (3-12); MONOCYTE COUNT 0.5 K/uL (0-0.8); NEUTROPHIL (%) 91.2 % (45-76); OVALOCYTES 1+; PLAT.SUFFICIENCY ADEQUATE
[2017-03-06 17:09] LABS: BASE EXCESS -0.3 mEq/L (-3 to +3); BICARBONATE 27.3 mEq/L (22-26); CARBOXY HGB 2.3 % (0-5); METHEMOGLOBIN 1.7 % (0-1.5); PCO2 58 mm Hg (35-45); PO2 66 mm Hg (80-100)
[2017-03-06 17:10] LABS: COMMENTS - BLOOD GASES +C; CONTINUOUS POS AIRWAY PRESSURE 8 cm H2O; DEVICE PB840; FI02 30 %; MODE NIV; PRES. SUPPORT 18 CM/H2O; SITE RR +A; TOTAL RESP RATE 19 resp/min; pH 7.28 (7.35-7.45)
[2017-03-06 17:14] LABS: POINT-OF-CARE METER ID UU13113731
[2017-03-06 20:03] LABS: BASE EXCESS 2.6 mEq/L (-3 to +3); BICARBONATE 26.2 mEq/L (22-26); CARBOXY HGB 2.1 % (0-5); METHEMOGLOBIN 1.8 % (0-1.5); PO2 76 mm Hg (80-100)
[2017-03-06 20:11] LABS: ADD MIUA? YES; BILIRUBIN NEGATIVE; BLOOD MODERATE; COLOR STRAW ((YELLOW)); GLUCOSE (STRIP) NEGATIVE; KETONES NEGATIVE; LEUKOCYTES LARGE; NITRITE NEGATIVE; PROTEIN (STRIP) NEGATIVE; SPECIFIC GRAVITY 1.005 (1.000-1.030); UROBILINOGEN 0.2 MG/DL (0.2-1.0)
[2017-03-06 20:47] LABS: BACTERIA 1+ /HPF; EPITHELIAL CELLS 1+ /HPF; MUCUS NONE SEEN /LPF; OTHER BUDDING YEAST; RED BLOOD CELLS 0-5 /HPF (0-5); UCUL ADDED? NO
[2017-03-06 21:32] LABS: POINT-OF-CARE METER ID UU13113731
[2017-03-06 21:54] LABS: TROP-I INTERPRETATION NEGATIVE; TROPONIN-I 0.07 ng/mL (0.0-0.30)
[2017-03-07] VITALS (15 sets, daily range): BP systolic 113–146; BP diastolic 66–94
[2017-03-07 01:33] LABS: CREATINE KINASE 14 IU/L (1-294); TOTAL CK 14 IU/L (1-294)
[2017-03-07 01:36] LABS: TROP-I INTERPRETATION NEGATIVE; TROPONIN-I 0.05 ng/mL (0.0-0.30)
[2017-03-07 01:39] LABS: CK-MB 1.2 ng/mL (0.0-4.9)
[2017-03-07 02:32] LABS: POINT-OF-CARE METER ID UU13113803
[2017-03-07 06:10] LABS: BASE EXCESS 4.9 mEq/L (-3 to +3); BICARBONATE 27.8 mEq/L (22-26); CARBOXY HGB 1.5 % (0-5); COMMENTS - BLOOD GASES C+A+; DEVICE VENTILATOR; FI02 30 %; MECHANICAL RATE 20 resp/min; METHEMOGLOBIN 1.9 % (0-1.5); MODE A/C; PCO2 34 mm Hg (35-45); PEEP 8 CM/H20; PO2 79 mm Hg (80-100); SITE RR; TIDAL VOLUME 400 ML; TOTAL RESP RATE 20 resp/min; pH 7.52 (7.35-7.45)
[2017-03-07 06:11] LABS: COMMENTS - BLOOD GASES C+A+; DEVICE VENTILATOR; FI02 30 %; MECHANICAL RATE 20 resp/min; MODE A/C; PCO2 36 mm Hg (35-45); PEEP 8 CM/H20; SITE RR; TIDAL VOLUME 400 ML; TOTAL RESP RATE 20 resp/min; pH 7.47 (7.35-7.45)
[2017-03-07 06:20] LABS: CHLORIDE 109 mEq/L (99-109); SODIUM 145 mEq/L (136-147)
[2017-03-07 06:21] LABS: MAGNESIUM 1.6 mg/dL (1.3-2.7)
[2017-03-07 06:23] LABS: GLUCOSE 145 mg/dL (70-99)
[2017-03-07 06:24] LABS: ANION GAP 9 MEQ/L (2-14)
[2017-03-07 06:26] LABS: GFR ESTIMATE (CALCULATED) 52 mL/min/
[2017-03-07 06:27] LABS: EOSINOPHIL (%) 0 % (0-5); HEMATOCRIT 32.4 % (36.0-46.0); IMMATURE GRANULOCYTE COUNT 0.1 K/uL; INSTRUMENT ABS NEUTROPHIL CT 6.2 K/uL; LYMPHOCYTE COUNT 0.3 K/uL (1.0-2.8); MCH 29.2 PG (29.0-34.0); MCHC 31.8 G/DL (30.0-36.0); MONOCYTE (%) 4.3 % (3-12); MONOCYTE COUNT 0.3 K/uL (0-0.8); NEUTROPHIL (%) 90.7 % (45-76); NEUTROPHIL COUNT 6.2 K/uL (1.8-6.4); NRBC (%) 3.5 /100 WBC (0-0); PLATELET COUNT 216 K/uL (156-360); RBC DIS.WIDTH-CV 20.5 % (11.8-14.6); RBC DIS.WIDTH-SD 64.6 % (39-53); RED BLOOD COUNT 3.53 M/uL (3.80-5.20); UREA NITROGEN (BUN) 13 mg/dL (9-23); WHITE BLOOD COUNT 6.8 K/uL (4.1-10.2)
[2017-03-07 06:28] LABS: MCV 91.8 FL (83-99)
[2017-03-07 06:29] LABS: CREATINE KINASE 12 IU/L (1-294); TOTAL CK 12 IU/L (1-294)
[2017-03-07 06:31] LABS: TROP-I INTERPRETATION NEGATIVE; TROPONIN-I 0.08 ng/mL (0.0-0.30)
[2017-03-07 06:33] LABS: POTASSIUM 3.3 mEq/L (3.7-5.4)
[2017-03-07 06:35] LABS: CK-MB 0.9 ng/mL (0.0-4.9)
[2017-03-07 07:26] LABS: SAMPLE HEMOLYSIS CHECK 0; SAMPLE ICTERIC CHECK 0; SAMPLE LIPEMIA CHECK 0; VANCOMYCIN, TROUGH 26.6 MCG/ML (10-20)
[2017-03-07 12:44] LABS: TROP-I INTERPRETATION NEGATIVE; TROPONIN-I 0.12 ng/mL (0.0-0.30)
[2017-03-07 13:09] LABS: CK-MB 1.7 ng/mL (0.0-4.9); TOTAL CK < 10 IU/L (1-294)
[2017-03-07 13:13] LABS: CREATINE KINASE < 10 IU/L (1-294)
[2017-03-07 18:08] LABS: POINT-OF-CARE METER ID UU13113748
[2017-03-07 19:51] LABS: CREATINE KINASE < 10 IU/L (1-294)
[2017-03-07 19:52] LABS: TOTAL CK < 10 IU/L (1-294)
[2017-03-07 20:09] LABS: CK-MB 1.6 ng/mL (0.0-4.9)
[2017-03-08] VITALS (23 sets, daily range): BP systolic 99–162; BP diastolic 59–103
[2017-03-08 01:32] LABS: POINT-OF-CARE METER ID UU13113731; POINT-OF-CARE USER ID PHATLC
[2017-03-08 06:01] LABS: POINT-OF-CARE METER ID UU14174217; POINT-OF-CARE USER ID PHATLC
[2017-03-08 06:37] LABS: EOSINOPHIL (%) 0 % (0-5); HEMATOCRIT 33.4 % (36.0-46.0); IMMATURE GRANULOCYTE (%) 0.5 % (0.0-0.7); IMMATURE GRANULOCYTE COUNT 0.1 K/uL; INSTRUMENT ABS NEUTROPHIL CT 10.3 K/uL; LYMPHOCYTE COUNT 0.2 K/uL (1.0-2.8); MCH 29.6 PG (29.0-34.0); MCV 92.3 FL (83-99); MEAN PLAT.VOLUME 9.8 uM^3 (9.5-12.4); MONOCYTE (%) 3.8 % (3-12); MONOCYTE COUNT 0.4 K/uL (0-0.8); NEUTROPHIL (%) 93.5 % (45-76); NEUTROPHIL COUNT 10.3 K/uL (1.8-6.4); NRBC (%) 0.3 /100 WBC (0-0); PLATELET COUNT 240 K/uL (156-360); RBC DIS.WIDTH-CV 21.4 % (11.8-14.6); RBC DIS.WIDTH-SD 66.5 % (39-53); RED BLOOD COUNT 3.62 M/uL (3.80-5.20); WHITE BLOOD COUNT 11.1 K/uL (4.1-10.2)
[2017-03-08 07:04] LABS: ANION GAP 13 MEQ/L (2-14); CHLORIDE 108 MEQ/L (99-109); GFR ESTIMATE (CALCULATED) 58 mL/min/; GLUCOSE 134 mg/dL (70-99); MAGNESIUM 2.4 mg/dl (1.3-2.7); POTASSIUM 3.4 MEQ/L (3.7-5.4); SAMPLE HEMOLYSIS CHECK 0; SAMPLE ICTERIC CHECK 0; SAMPLE LIPEMIA CHECK 0; SODIUM 147 MEQ/L (136-147); UREA NITROGEN (BUN) 14 mg/dL (9-23); VANCOMYCIN, TROUGH 19.5 MCG/ML (10-20)
[2017-03-08 11:38] LABS: POINT-OF-CARE METER ID UU14174217
[2017-03-08 13:10] LABS: BASE EXCESS 3.9 mEq/L (-3 to +3); BICARBONATE 29.2 mEq/L (22-26); CARBOXY HGB 2.1 % (0-5); METHEMOGLOBIN 2.2 % (0-1.5); PO2 80 mm Hg (80-100)
[2017-03-08 13:11] LABS: COMMENTS - BLOOD GASES A+C+; DEVICE 840; FI02 30 %; MODE SPONT; PCO2 46 mm Hg (35-45); PEEP 5 CM/H20; PRES. SUPPORT 5 CM/H2O; SITE LR; TOTAL RESP RATE 26 resp/min; pH 7.41 (7.35-7.45)
[2017-03-08 17:58] LABS: POINT-OF-CARE METER ID UU14174217
[2017-03-08 22:21] LABS: C DIFF TOXIN ND (NEGATIVE)
[2017-03-09] VITALS (18 sets, daily range): BP systolic 123–158; BP diastolic 66–93
[2017-03-09 01:42] LABS: POINT-OF-CARE USER ID PHATLC
[2017-03-09 05:33] LABS: EOSINOPHIL (%) 0.1 % (0-5); HEMATOCRIT 33.5 % (36.0-46.0); IMMATURE GRANULOCYTE (%) 0.5 % (0.0-0.7); IMMATURE GRANULOCYTE COUNT 0.1 K/uL; LYMPHOCYTE COUNT 0.2 K/uL (1.0-2.8); MCH 29.1 PG (29.0-34.0); MCV 93.8 FL (83-99); MEAN PLAT.VOLUME 10.3 uM^3 (9.5-12.4); MONOCYTE COUNT 0.7 K/uL (0-0.8); NEUTROPHIL (%) 92.9 % (45-76); NRBC (%) 0.2 /100 WBC (0-0); PLATELET COUNT 258 K/uL (156-360); RBC DIS.WIDTH-CV 21.1 % (11.8-14.6); RBC DIS.WIDTH-SD 70.6 % (39-53); RED BLOOD COUNT 3.57 M/uL (3.80-5.20)
[2017-03-09 05:44] LABS: POINT-OF-CARE METER ID UU13113731; POINT-OF-CARE USER ID PHATLC
[2017-03-09 06:36] LABS: ANION GAP 10 MEQ/L (2-14); CHLORIDE 107 MEQ/L (99-109); GFR ESTIMATE (CALCULATED) 58 mL/min/; GLUCOSE 186 mg/dL (70-99); MAGNESIUM 2.4 mg/dl (1.3-2.7); SAMPLE HEMOLYSIS CHECK 3; SAMPLE ICTERIC CHECK 0; SAMPLE LIPEMIA CHECK 0; SODIUM 143 MEQ/L (136-147); VANCOMYCIN, TROUGH 15.8 MCG/ML (10-20)
[2017-03-09 06:38] LABS: POTASSIUM 4.3 MEQ/L (3.7-5.4); UREA NITROGEN (BUN) 24 mg/dL (9-23)
[2017-03-09 11:48] LABS: POINT-OF-CARE METER ID UU13113731
[2017-03-09 17:09] LABS: POINT-OF-CARE METER ID UU14162636
[2017-03-09 23:39] LABS: POINT-OF-CARE METER ID UU13113731
[2017-03-10] VITALS (11 sets, daily range): BP systolic 127–170; BP diastolic 67–89
[2017-03-10 04:50] LABS: EOSINOPHIL (%) 0.1 % (0-5); HEMATOCRIT 34.9 % (36.0-46.0); IMMATURE GRANULOCYTE (%) 0.8 % (0.0-0.7); IMMATURE GRANULOCYTE COUNT 0.1 K/uL; INSTRUMENT ABS NEUTROPHIL CT 15.2 K/uL; LYMPHOCYTE COUNT 0.3 K/uL (1.0-2.8); MCH 28.5 PG (29.0-34.0); MCHC 30.1 G/DL (30.0-36.0); MCV 94.6 FL (83-99); MEAN PLAT.VOLUME 10.5 uM^3 (9.5-12.4); MONOCYTE (%) 5.9 % (3-12); NEUTROPHIL (%) 91.5 % (45-76); NEUTROPHIL COUNT 15.2 K/uL (1.8-6.4); PLATELET COUNT 215 K/uL (156-360); RBC DIS.WIDTH-CV 20.5 % (11.8-14.6); RBC DIS.WIDTH-SD 70.4 % (39-53); RED BLOOD COUNT 3.69 M/uL (3.80-5.20); WHITE BLOOD COUNT 16.6 K/uL (4.1-10.2)
[2017-03-10 04:58] LABS: CHLORIDE 107 mEq/L (99-109)
[2017-03-10 04:59] LABS: MAGNESIUM 1.8 mg/dL (1.3-2.7); SODIUM 147 mEq/L (136-147)
[2017-03-10 05:01] LABS: GLUCOSE 175 mg/dL (70-99); POTASSIUM 3.1 mEq/L (3.7-5.4)
[2017-03-10 05:02] LABS: ANION GAP 11 MEQ/L (2-14)
[2017-03-10 05:04] LABS: GFR ESTIMATE (CALCULATED) > 59 mL/min/
[2017-03-10 05:05] LABS: UREA NITROGEN (BUN) 30 mg/dL (9-23)
[2017-03-10 06:43] LABS: POINT-OF-CARE METER ID UU14162636
[2017-03-10 12:33] LABS: POINT-OF-CARE METER ID UU14174217
[2017-03-10 18:33] LABS: POINT-OF-CARE METER ID UU14174217
[2017-03-11] VITALS (8 sets, daily range): BP systolic 120–149; BP diastolic 66–90
[2017-03-11 00:54] LABS: POINT-OF-CARE METER ID UU13113748
[2017-03-11 05:54] LABS: POINT-OF-CARE METER ID UU13113731
[2017-03-11 07:32] LABS: EOSINOPHIL (%) 0.4 % (0-5); EOSINOPHIL COUNT 0.1 K/uL (0-0.3); HEMATOCRIT 34.4 % (36.0-46.0); IMMATURE GRANULOCYTE (%) 0.6 % (0.0-0.7); IMMATURE GRANULOCYTE COUNT 0.1 K/uL; INSTRUMENT ABS NEUTROPHIL CT 10.7 K/uL; LYMPHOCYTE COUNT 0.2 K/uL (1.0-2.8); MCH 29.2 PG (29.0-34.0); MCHC 31.1 G/DL (30.0-36.0); MCV 93.7 FL (83-99); MEAN PLAT.VOLUME 10.2 uM^3 (9.5-12.4); MONOCYTE (%) 4.1 % (3-12); MONOCYTE COUNT 0.5 K/uL (0-0.8); NEUTROPHIL (%) 93.4 % (45-76); NEUTROPHIL COUNT 10.7 K/uL (1.8-6.4); PLATELET COUNT 179 K/uL (156-360); RBC DIS.WIDTH-SD 68.6 % (39-53); RED BLOOD COUNT 3.67 M/uL (3.80-5.20); WHITE BLOOD COUNT 11.4 K/uL (4.1-10.2)
[2017-03-11 07:51] LABS: ANION GAP 8 MEQ/L (2-14); CHLORIDE 102 MEQ/L (99-109); GFR ESTIMATE (CALCULATED) > 59 mL/min/; GLUCOSE 144 mg/dL (70-99); MAGNESIUM 2.4 mg/dl (1.3-2.7); POTASSIUM 3.1 MEQ/L (3.7-5.4); SAMPLE HEMOLYSIS CHECK 0; SAMPLE ICTERIC CHECK 0; SAMPLE LIPEMIA CHECK 0; SODIUM 144 MEQ/L (136-147); UREA NITROGEN (BUN) 26 mg/dL (9-23)
[2017-03-11 10:08] LABS: BASE EXCESS 10.6 mEq/L (-3 to +3); BICARBONATE 37.5 mEq/L (22-26); CARBOXY HGB 2.2 % (0-5); COMMENTS - BLOOD GASES C+; DEVICE NC; METHEMOGLOBIN 1.9 % (0-1.5); O2 FLOW 2 L/MIN; PCO2 62 mm Hg (35-45); PO2 68 mm Hg (80-100); SITE RR; TOTAL RESP RATE 18 resp/min; pH 7.39 (7.35-7.45)
[2017-03-12 07:18] VITALS: BP 137/86
[2017-03-12 08:00] LABS: EOSINOPHIL (%) 1.8 % (0-5); EOSINOPHIL COUNT 0.3 K/uL (0-0.3); HEMATOCRIT 37.5 % (36.0-46.0); IMMATURE GRANULOCYTE (%) 0.5 % (0.0-0.7); IMMATURE GRANULOCYTE COUNT 0.1 K/uL; LYMPHOCYTE COUNT 0.4 K/uL (1.0-2.8); MCH 29.3 PG (29.0-34.0); MCHC 30.9 G/DL (30.0-36.0); MCV 94.7 FL (83-99); MEAN PLAT.VOLUME 10.2 uM^3 (9.5-12.4); MONOCYTE (%) 7.5 % (3-12); MONOCYTE COUNT 1.2 K/uL (0-0.8); NEUTROPHIL (%) 87.8 % (45-76); RBC DIS.WIDTH-CV 19.7 % (11.8-14.6); RBC DIS.WIDTH-SD 68.2 % (39-53); RED BLOOD COUNT 3.96 M/uL (3.80-5.20); WHITE BLOOD COUNT 15.9 K/uL (4.1-10.2)
[2017-03-12 08:01] LABS: PLATELET COUNT 257 K/uL (156-360)
[2017-03-12 08:09] LABS: ANION GAP 9 MEQ/L (2-14); CHLORIDE 99 MEQ/L (99-109); GFR ESTIMATE (CALCULATED) > 59 mL/min/; GLUCOSE 121 mg/dL (70-99); MAGNESIUM 2.1 mg/dl (1.3-2.7); POTASSIUM 3.3 MEQ/L (3.7-5.4); SAMPLE HEMOLYSIS CHECK 0; SAMPLE ICTERIC CHECK 0; SAMPLE LIPEMIA CHECK 0; SODIUM 144 MEQ/L (136-147); UREA NITROGEN (BUN) 22 mg/dL (9-23)
[2017-03-12 10:30] VITALS: BP 147/72
[2017-03-12 15:40] VITALS: BP 169/73
[2017-03-12 16:28] LABS: POINT-OF-CARE METER ID UU13113725
[2017-03-12 23:05] VITALS: BP 96/56
[2017-03-12 23:42] LABS: POINT-OF-CARE METER ID UU13113725
[2017-03-13 05:48] LABS: POINT-OF-CARE METER ID UU13113725
[2017-03-13 07:23] LABS: EOSINOPHIL (%) 0.1 % (0-5); HEMATOCRIT 41.1 % (36.0-46.0); IMMATURE GRANULOCYTE (%) 0.9 % (0.0-0.7); IMMATURE GRANULOCYTE COUNT 0.1 K/uL; INSTRUMENT ABS NEUTROPHIL CT 11.2 K/uL; LYMPHOCYTE COUNT 0.3 K/uL (1.0-2.8); MCH 29.4 PG (29.0-34.0); MCHC 29.9 G/DL (30.0-36.0); MCV 98.3 FL (83-99); MEAN PLAT.VOLUME 10.2 uM^3 (9.5-12.4); MONOCYTE (%) 6.6 % (3-12); MONOCYTE COUNT 0.8 K/uL (0-0.8); NEUTROPHIL (%) 89.8 % (45-76); NEUTROPHIL COUNT 11.2 K/uL (1.8-6.4); PLATELET COUNT 208 K/uL (156-360); RBC DIS.WIDTH-CV 19.5 % (11.8-14.6); RBC DIS.WIDTH-SD 68.9 % (39-53); RED BLOOD COUNT 4.18 M/uL (3.80-5.20); WHITE BLOOD COUNT 12.4 K/uL (4.1-10.2)
[2017-03-13 07:55] LABS: ANION GAP 10 MEQ/L (2-14); CHLORIDE 99 MEQ/L (99-109); GFR ESTIMATE (CALCULATED) > 59 mL/min/; GLUCOSE 130 mg/dL (70-99); MAGNESIUM 2.3 mg/dl (1.3-2.7); POTASSIUM 3.7 MEQ/L (3.7-5.4); SAMPLE HEMOLYSIS CHECK 0; SAMPLE ICTERIC CHECK 0; SAMPLE LIPEMIA CHECK 0; SODIUM 146 MEQ/L (136-147); UREA NITROGEN (BUN) 24 mg/dL (9-23)
[2017-03-13 08:23] VITALS: BP 121/66
[2017-03-13] MEDS ORDERED: HYOSCYAMINE0.125 M1 SL (13:28)
[2017-03-13] MEDS ORDERED: MORPHINE CON20 MG/M1 PO (13:28)
[2017-03-13] MEDS ORDERED: ATIVAN INTE2 MG/1 ML PO (13:28)
[2017-03-13 13:32] LABS: POINT-OF-CARE METER ID UU13113725
== END 2017-03-13 17:37 | DRG 91 ==
LOC: EME 15:59 → EDOF 20:48 → 2EAST 20:48 → 5SOUTH 20:48 → 4WEST 20:48 → 5SOUTH 22:38 → 4WEST 02-25 23:47 → 2EAST 02-28 17:44 → 4WEST 03-06 12:40 → 5EAST 03-11 20:07
PROVIDERS: Emergency Medicine; Hospitalist; Internal Medicine; Internal Medicine Critical Care Medicine; Internal Medicine Nephrology; Internal Medicine Pulmonary Disease; Nurse Practitioner Adult Health
DX: G92 Toxic encephalopathy (principal); T42.4X5A Adverse effect of benzodiazepines, initial encounter; E87.2 Acidosis; A41.9 Sepsis, unspecified organism; J44.0 Chronic obstructive pulmonary disease with (acute) lower respiratory infection; J18.9 Pneumonia, unspecified organism; E46 Unspecified protein-calorie malnutrition; J96.21 Acute and chronic respiratory failure with hypoxia; J96.22 Acute and chronic respiratory failure with hypercapnia; J44.1 Chronic obstructive pulmonary disease with (acute) exacerbation; I13.0 Hypertensive heart and chronic kidney disease with heart failure and stage 1 through stage 4 chronic kidney disease, or unspecified chronic kidney disease; I50.33 Acute on chronic diastolic (congestive) heart failure; E11.22 Type 2 diabetes mellitus with diabetic chronic kidney disease; N18.9 Chronic kidney disease, unspecified; J98.11 Atelectasis; G47.33 Obstructive sleep apnea (adult) (pediatric); N39.0 Urinary tract infection, site not specified; I42.0 Dilated cardiomyopathy; I47.1 Supraventricular tachycardia; I48.92 Unspecified atrial flutter; D64.9 Anemia, unspecified; D75.89 Other specified diseases of blood and blood-forming organs; E03.9 Hypothyroidism, unspecified; E11.69 Type 2 diabetes mellitus with other specified complication; E66.01 Morbid (severe) obesity due to excess calories; E78.5 Hyperlipidemia, unspecified; E83.42 Hypomagnesemia; E11.65 Type 2 diabetes mellitus with hyperglycemia; E87.6 Hypokalemia; E83.39 Other disorders of phosphorus metabolism; G25.0 Essential tremor; G25.81 Restless legs syndrome; G43.909 Migraine, unspecified, not intractable, without status migrainosus; I08.0 Rheumatic disorders of both mitral and aortic valves; I27.81 Cor pulmonale (chronic); I27.2 Other secondary pulmonary hypertension; I48.91 Unspecified atrial fibrillation; K21.9 Gastro-esophageal reflux disease without esophagitis; R62.7 Adult failure to thrive; Z53.20 Procedure and treatment not carried out because of patient's decision for unspecified reasons; L89.310 Pressure ulcer of right buttock, unstageable; L89.320 Pressure ulcer of left buttock, unstageable; L89.150 Pressure ulcer of sacral region, unstageable; I87.2 Venous insufficiency (chronic) (peripheral); Z66 Do not resuscitate; Z51.5 Encounter for palliative care; T81.4XXD Infection following a procedure, subsequent encounter; Z96.642 Presence of left artificial hip joint; Z96.653 Presence of artificial knee joint, bilateral; Z75.1 Person awaiting admission to adequate facility elsewhere; Z68.30 Body mass index [BMI] 30.0-30.9, adult; Z79.01 Long term (current) use of anticoagulants; Z79.4 Long term (current) use of insulin; Z86.14 Personal history of Methicillin resistant Staphylococcus aureus infection; Z86.711 Personal history of pulmonary embolism; Z86.718 Personal history of other venous thrombosis and embolism; Z87.891 Personal history of nicotine dependence; Z91.040 Latex allergy status; Z99.81 Dependence on supplemental oxygen
CPT/HCPCS: 36600; 70450; 71010; 71250; 76705; 80048; 80048 91; 80053; 80202; 81003; 82140; 82248; 82550; 82550 91; 82553; 82565; 82803; 82948; 83605; 83735; 83880; 84100; 84443; 84484; 84550; 85025; 85027; 86140; 87040; 87070; 87086; 87106; 87205; 87493; 87641; 92526 GN; 92610 GN; 93005; 93306; 94002; 94003; 94010; 94640; 94640 76; 94660; 94760; 94799; 95819; 97530 GO; 99281; 99285; J1250; J1815; J1940; J2060; J2270; J2543; J2704; J2920; J2930; J3010; J3370; J3475; J3480; J7030; J7040; J7050; J7509; J7512; S0028